=== PATIENT | female | born 1955 | race Two or more races ===

== ENCOUNTER 2017-01-16 18:57 | Inpatient (IN) | payer MEDICAID ==
[~2017-01-16] VITALS: Ht 157.5 cm; Wt 63.5 kg
[2017-01-16 19:30] VITALS: BP 124/54
[2017-01-16 20:25] LABS: MEAN CORPUSCULAR HEMOGLOBIN 33.2 PG (27.0-31.0); MEAN CORPUSCULAR HGB CONC 35.2 G/DL (32.0-36.0); MEAN CORPUSCULAR VOLUME 94 FL (80-99); MEAN PLATELET VOLUME 9.6 FL (6.5-10.1); PLATELET COUNT 150 K/UL (150-450); RED BLOOD COUNT 2.77 M/UL (4.20-5.40); RED CELL DISTRIBUTION WIDTH 12.6 % (11.6-14.8)
--- NOTE | 2017-01-16 20:34 | Emergency Room Report ---
History of Present Illness General Chief Complaint: Skin Rash/Abscess Source: Friend Present Illness HPI 61-year-old female presents emergency department complaining of progressive rash with blistering of the oral mucosa and vaginal mucosa progressive over 2 days. Patient states she has a history of rash with chemotherapy however her rash has been progressive and new onset of blistering lesions in the mouth and genital area. Patient reports mild itching initially and now painful lesions. Patient denies fevers or chills patient states that rash improved minimally with IV hydration at last doctor's visit however progressed the next day. Patient reports burning sensation in the throat with painful swallowing denies difficulty breathing or shortness of breath. Patient also reports history of gastritis which with chemotherapy he does become exacerbated. Patient denies chest pain, abdominal pain or vomiting reports intermittent nausea with treatment. Patient also reports dysuria denies frequency or hematuria. Last chemotherapy treatment was 1 week ago. She was also receiving injections to lower the immune system. Denies CP, Palpitations, LOC, AMS, dizziness, Changes in Vision, Sensation, paresthesias, or a sudden severe headache. Allergies: Coded Allergies: No Known Allergies (Unverified , 01/16/17) Patient History Past Medical History: see triage record Past Surgical History: none Pertinent Family History: none Last Menstrual Period: N/A Now: No Immunizations: UTD Reviewed Nursing Documentation: PMH: Agreed, PSxH: Agreed Nursing Documentation-PMH Hx Cancer: Yes - breast cancer Review of Systems All Other Systems: negative except mentioned in HPI Physical Exam Vital Signs Date Time Temp Pulse Resp B/P Pulse Ox O2 Delivery O2 Flow Rate FiO2 01/16/17 19:06 99.0 98 20 120/72 98 Room Air Sp02 EP Interpretation: reviewed, normal General Appearance: no apparent distress, alert, GCS 15, non-toxic Head: normocephalic, atraumatic Eyes: bilateral eye PERRL, bilateral eye normal inspection ENT: hearing grossly normal, normal pharynx, no angioedema, normal voice Neck: full range of motion, supple/symm/no masses Respiratory: lungs clear, normal breath sounds, no respiratory distress, no wheezing, speaking full sentences Cardiovascular #1: regular rate, rhythm, no edema Gastrointestinal: normal bowel sounds, non tender, soft, no guarding, no rebound Genitourinary: other - macerated vessicular lesions noted to the genital mucosa , no LAD Musculoskeletal: back normal, gait/station normal, normal range of motion, non- tender Neurologic: alert, oriented x3, responsive, motor strength/tone normal, sensory intact, speech normal Psychiatric: judgement/insight normal, memory normal, mood/affect normal Skin: normal color, warm/dry, well hydrated, rash - vessicular lesions to the posterior pharyanx and cheek mucosa, lesions also noted in the vaginal mucosa, there is erythematous non blanching rash with areas of excoriation to the soles of the feet, the bilateral hands, and the bilateral shoulders. Medical Decision Making PA Attestation Dr. Sandy is my supervising Physician whom patient management has been discussed with. Diagnostic Impression: Primary Impression: Adverse drug reaction Qualified Codes: T88.7XXA - Unspecified adverse effect of drug or medicament, initial encounter Additional Impressions: Neutropenia Qualified Codes: D70.2 - Other drug-induced agranulocytosis Elevated liver enzymes ER Course 61-year-old female presents emergency department complaining of progressive rash with blistering of the oral mucosa and vaginal mucosa progressive over 2 days. Patient states she has a history of rash with chemotherapy however her rash has been progressive and new onset of blistering lesions in the mouth and genital area. Patient reports mild itching initially and now painful lesions. Patient denies fevers or chills patient states that rash improved minimally with IV hydration at last doctor's visit however progressed the next day. Patient reports burning sensation in the throat with painful swallowing denies difficulty breathing or shortness of breath. Patient also reports history of gastritis which with chemotherapy he does become exacerbated. Patient denies chest pain, abdominal pain or vomiting reports intermittent nausea with treatment. Patient also reports dysuria denies frequency or hematuria. Last chemotherapy treatment was 1 week ago. She was also receiving injections to lower the immune system. Ddx considered but are not limited to cellulitis, allergic reaction, angio edema , abscess, SJS, TEN, Drug eruption Vital signs: are WNL, pt. is afebrile H&PE are most consistent with allergic involving mucous membranes suspicious for SJS. ORDERS: -CBC: critically decreased WBC's, otherwise pancytopenia noted -CMP: elevated LFT's AST 81, ALT 170 -PT/PTT: ED INTERVENTIONS: -1Liter NS - 25mg IV Benadryl DISPOSITION: at this time pt. will be admitted to Dr. Oliveros for Drug reaction. Dr. Oliveros agreed to admit the pt. and to continue pt. care management. Labs Test 01/16/17 19:55 White Blood Count 1.4 K/UL (4.8-10.8) Red Blood Count 2.77 M/UL (4.20-5.40) Hemoglobin 9.2 G/DL (12.0-16.0) Hematocrit 26.1 % (37.0-47.0) Mean Corpuscular Volume 94 FL (80-99) Mean Corpuscular Hemoglobin 33.2 PG (27.0-31.0) Mean Corpuscular Hemoglobin Concent 35.2 G/DL (32.0-36.0) Red Cell Distribution Width 12.6 % (11.6-14.8) Platelet Count 150 K/UL (150-450) Mean Platelet Volume 9.6 FL (6.5-10.1) Neutrophils (%) (Auto) % (45.0-75.0) Lymphocytes (%) (Auto) % (20.0-45.0) Monocytes (%) (Auto) % (1.0-10.0) Eosinophils (%) (Auto) % (0.0-3.0) Basophils (%) (Auto) % (0.0-2.0) Differential Total Cells Counted 100 Neutrophils % (Manual) 15 % (45-75) Lymphocytes % (Manual) 74 % (20-45) Monocytes % (Manual) 10 % (1-10) Eosinophils % (Manual) 0 % (0-3) Basophils % (Manual) 1 % (0-2) Band Neutrophils 0 % (0-8) Platelet Estimate Adequate Platelet Morphology Normal Hypochromasia 2+ Anisocytosis 1+ Prothrombin Time 9.4 SEC (9.30-11.50) Prothromb Time International Ratio 0.9 (0.9-1.1) Activated Partial Thromboplast Time 25 SEC (23-33) Sodium Level 141 mEQ/L (135-145) Potassium Level 3.9 mEQ/L (3.4-4.9) Chloride Level 102 mEQ/L (98-107) Carbon Dioxide Level 24 mEQ/L (20-30) Anion Gap 15 (5-15) Blood Urea Nitrogen 15 mg/dL (7-23) Creatinine 0.7 mg/dL (0.5-0.9) Estimat Glomerular Filtration Rate > 60 mL/min (>60) Glucose Level 112 mg/dL (74-106) Calcium Level 8.9 mg/dL (8.6-10.2) Total Bilirubin 0.3 mg/dL (0.0-1.2) Aspartate Amino Transf (AST/SGOT) 81 U/L (5-40) Alanine Aminotransferase (ALT/SGPT) 170 U/L (3-33) Alkaline Phosphatase 92 U/L (35-104) Total Protein 6.6 g/dL (6.6-8.7) Albumin 3.9 g/dL (3.5-5.2) Globulin 2.7 g/dL Albumin/Globulin Ratio 1.4 (1.0-2.7) Last Vital Signs Date Time Temp Pulse Resp B/P Pulse Ox O2 Delivery O2 Flow Rate FiO2 01/16/17 19:06 99.0 98 20 120/72 98 Room Air Disposition: ADMITTED INPATIENT Condition: Serious Referrals: NOT CHOSEN IPA/,REFERRING (PCP) Alexa Clemente Jan 16, 2017 20:34
[2017-01-16 20:37] LABS: INR 0.9 (0.9-1.1); PROTHROMBIN TIME 9.4 SEC (9.30-11.50)
[2017-01-16 20:39] LABS: ALANINE AMINOTRANSFERASE 170 U/L (3-33); ALBUMIN/GLOBULIN RATIO 1.4 (1.0-2.7); ANION GAP 15 (5-15); ASPARTATE AMINO TRANSFERASE 81 U/L (5-40); CALCIUM 8.9 mg/dL (8.6-10.2); CARBON DIOXIDE 24 mEQ/L (20-30); CHLORIDE 102 mEQ/L (98-107); CREATININE 0.7 mg/dL (0.5-0.9); GLOMERULAR FILTRATION RATE > 60 mL/min (>60); HEMOLYSIS 3; POTASSIUM 3.9 mEQ/L (3.4-4.9); SODIUM 141 mEQ/L (135-145); TOTAL PROTEIN 6.6 g/dL (6.6-8.7)
[2017-01-16 20:43] LABS: WHITE BLOOD COUNT 1.4 K/UL (4.8-10.8)
[2017-01-16] MEDS ORDERED: DiphenhydrAMINE 50mg/ml Inj IVP ONE (20:45)
[2017-01-16 21:00] VITALS: BP 108/58
[2017-01-16 21:33] LABS: ANISOCYTOSIS 1+; BAND NEUTROPHILS % (MANUAL) 0 % (0-8); BASOPHILS % (MANUAL) 1 % (0-2); EOSINOPHILS % (MANUAL) 0 % (0-3); HYPOCHROMASIA 2+; LYMPHOCYTES % (MANUAL) 74 % (20-45); NEUTROPHILS % (MANUAL) 15 % (45-75); PLATELET ESTIMATE ADEQUATE; PLATELET MORPHOLOGY NORMAL; TOTAL CELLS COUNTED 100
--- NOTE | 2017-01-16 21:39 | Consultation ---
Consult Note Consult Note Hematology Consult DOS: 01/16/17 RFC: Evaluation of breast cancer REQ MD: Arlin ID 61-year-old female pmhx of recently daignoised breast cancer and getting chemotherapy, presents emergency department complaining of progressive rash with blistering of the oral mucosa and vaginal mucosa progressive over 2 days. Patient states she has a history of rash with chemotherapy however her rash has been progressive and new onset of blistering lesions in the mouth and genital area. Patient reports mild itching initially and now painful lesions. Patient denies fevers or chills patient states that rash improved minimally with IV hydration at last doctor's visit however progressed the next day. Patient reports burning sensation in the throat with painful swallowing denies difficulty breathing or shortness of breath. Patient also reports history of gastritis which with chemotherapy he does become exacerbated. Patient denies chest pain, abdominal pain or vomiting reports intermittent nausea with treatment. Patient also reports dysuria denies frequency or hematuria. Last chemotherapy treatment was 1 week ago. She was also receiving neupogen, and heme/onc consulted. Allergies: No Known Allergies (Unverified , 01/16/17) Past Medical History: see triage record Past Surgical History: breast biopspy Family History: none Hx Cancer: Yes - breast cancer Meds: recently got herceptin and perjeta, tylenol ALL: nkda ROS: Constitutional: No fever, no chills, no night sweats, no fatigue Skin: No rashes, lumps, itchiness, dryness HEENT: No MOREAU, ear ache, visual changes, double vision, nosebleeds, sore throat, lumps, swollen glands Breasts: No lumps, pain, discharge Pulmonary: No cough, sputum, shortness of breath, coughing up blood, hemoptysis Cardiovascular: No chest pain, tightness, palpitations, syncope, claudication, orthopnea, PND GI: No nausea, vomiting, diarrhea, melena, hematochezia, change in appetite, abdominal pain : No dysuria, frequency, urgency, urinary incontinence, foamy urine Musculoskeletal: No joint swelling or muscle pain, trauma, back pain Neurologic: No dizziness, fainting, seizures, changes in smell or taste PE: General Appearance: A+O x3, NAD HEENT: normocephalic, atraumatic Neck: non-tender, normal alignment Respiratory/Chest: chest wall non-tender, lungs clear Cardiovascular/Chest: normal peripheral pulses, normal rate Abdomen: normal bowel sounds, non tender Extremities: normal, no cce, rash noted of upper extremities specifically Labs Test 01/16/17 19:55 White Blood Count 1.4 K/UL (4.8-10.8) Red Blood Count 2.77 M/UL (4.20-5.40) Hemoglobin 9.2 G/DL (12.0-16.0) Hematocrit 26.1 % (37.0-47.0) Mean Corpuscular Volume 94 FL (80-99) Mean Corpuscular Hemoglobin 33.2 PG (27.0-31.0) Mean Corpuscular Hemoglobin Concent 35.2 G/DL (32.0-36.0) Red Cell Distribution Width 12.6 % (11.6-14.8) Platelet Count 150 K/UL (150-450) Mean Platelet Volume 9.6 FL (6.5-10.1) Neutrophils (%) (Auto) % (45.0-75.0) Lymphocytes (%) (Auto) % (20.0-45.0) Monocytes (%) (Auto) % (1.0-10.0) Eosinophils (%) (Auto) % (0.0-3.0) Basophils (%) (Auto) % (0.0-2.0) Differential Total Cells Counted 100 Neutrophils % (Manual) 15 % (45-75) Lymphocytes % (Manual) 74 % (20-45) Monocytes % (Manual) 10 % (1-10) Eosinophils % (Manual) 0 % (0-3) Basophils % (Manual) 1 % (0-2) Band Neutrophils 0 % (0-8) Platelet Estimate Adequate Platelet Morphology Normal Hypochromasia 2+ Anisocytosis 1+ Prothrombin Time 9.4 SEC (9.30-11.50) Prothromb Time International Ratio 0.9 (0.9-1.1) Activated Partial Thromboplast Time 25 SEC (23-33) Sodium Level 141 mEQ/L (135-145) Potassium Level 3.9 mEQ/L (3.4-4.9) Chloride Level 102 mEQ/L (98-107) Carbon Dioxide Level 24 mEQ/L (20-30) Anion Gap 15 (5-15) Blood Urea Nitrogen 15 mg/dL (7-23) Creatinine 0.7 mg/dL (0.5-0.9) Estimat Glomerular Filtration Rate > 60 mL/min (>60) Glucose Level 112 mg/dL (74-106) Calcium Level 8.9 mg/dL (8.6-10.2) Total Bilirubin 0.3 mg/dL (0.0-1.2) Aspartate Amino Transf (AST/SGOT) 81 U/L (5-40) Alanine Aminotransferase (ALT/SGPT) 170 U/L (3-33) Alkaline Phosphatase 92 U/L (35-104) Total Protein 6.6 g/dL (6.6-8.7) Albumin 3.9 g/dL (3.5-5.2) Globulin 2.7 g/dL Albumin/Globulin Ratio 1.4 (1.0-2.7) Assessment and Recs: # Stage II breast cancer (per patient) has been on perjeta and herceptin with Dr. Mendoza in his clinic and now p/w rash likely related to medication ---> currently has not recieved chemo since 01/11/17, off of it, monitor rash for improvement in next few days # Leukopenia likely related to chemotherapy that was in addition to herpectin and perjeta ----> Neupogen daily SQ has been administered # Anemia secondary to chronic disease ---> Anemia w/u has been ordered # Anemia rule out Gi bleed # Mucositis and rash related to perjeta very likely (commonly associated with this mediation) # Dysphagia related to perjeta likely Lei Parisi Jan 16, 2017 21:39
--- NOTE | 2017-01-16 21:57 | Infectious Diseases Prog Note ---
Assessment/Plan Problems: (1) Neutropenic fever Assessment & Plan: will send blood and urine culture, and start vancomycin with cefepime empirically , continue neupogen until WBC improves as per hematology recommendations (2) Adverse drug reaction Assessment & Plan: suspect due to chemo, recommend hydration, antibiotics, antihistamines and dermatology consult (3) Breast cancer Assessment & Plan: s/p chemo x3 , HEM/ONC is following Subjective Allergies: Coded Allergies: No Known Allergies (Unverified , 01/16/17) Objective Vital Signs Last 24 Hour Vital Signs Date Time Temp Pulse Resp B/P Pulse Ox O2 Delivery O2 Flow Rate FiO2 01/16/17 21:00 88 22 108/58 97 Room Air 01/16/17 19:30 86 22 124/54 99 Room Air 01/16/17 19:06 99.0 98 20 120/72 98 Room Air Height (Feet): 5 Height (Inches): 2.00 Weight (Pounds): 140 Laboratory Tests Test 01/16/17 19:55 White Blood Count 1.4 K/UL (4.8-10.8) *L Red Blood Count 2.77 M/UL (4.20-5.40) L Hemoglobin 9.2 G/DL (12.0-16.0) L Hematocrit 26.1 % (37.0-47.0) L Mean Corpuscular Volume 94 FL (80-99) Mean Corpuscular Hemoglobin 33.2 PG (27.0-31.0) H Mean Corpuscular Hemoglobin Concent 35.2 G/DL (32.0-36.0) Red Cell Distribution Width 12.6 % (11.6-14.8) Platelet Count 150 K/UL (150-450) Mean Platelet Volume 9.6 FL (6.5-10.1) Neutrophils (%) (Auto) % (45.0-75.0) Lymphocytes (%) (Auto) % (20.0-45.0) Monocytes (%) (Auto) % (1.0-10.0) Eosinophils (%) (Auto) % (0.0-3.0) Basophils (%) (Auto) % (0.0-2.0) Differential Total Cells Counted 100 Neutrophils % (Manual) 15 % (45-75) L Lymphocytes % (Manual) 74 % (20-45) H Monocytes % (Manual) 10 % (1-10) Eosinophils % (Manual) 0 % (0-3) Basophils % (Manual) 1 % (0-2) Band Neutrophils 0 % (0-8) Platelet Estimate Adequate Platelet Morphology Normal Hypochromasia 2+ Anisocytosis 1+ Prothrombin Time 9.4 SEC (9.30-11.50) Prothromb Time International Ratio 0.9 (0.9-1.1) Activated Partial Thromboplast Time 25 SEC (23-33) Sodium Level 141 mEQ/L (135-145) Potassium Level 3.9 mEQ/L (3.4-4.9) Chloride Level 102 mEQ/L (98-107) Carbon Dioxide Level 24 mEQ/L (20-30) Anion Gap 15 (5-15) Blood Urea Nitrogen 15 mg/dL (7-23) Creatinine 0.7 mg/dL (0.5-0.9) Estimat Glomerular Filtration Rate > 60 mL/min (>60) Glucose Level 112 mg/dL (74-106) H Calcium Level 8.9 mg/dL (8.6-10.2) Total Bilirubin 0.3 mg/dL (0.0-1.2) Aspartate Amino Transf (AST/SGOT) 81 U/L (5-40) H Alanine Aminotransferase (ALT/SGPT) 170 U/L (3-33) H Alkaline Phosphatase 92 U/L (35-104) Total Protein 6.6 g/dL (6.6-8.7) Albumin 3.9 g/dL (3.5-5.2) Globulin 2.7 g/dL Albumin/Globulin Ratio 1.4 (1.0-2.7) Current Medications Medications (Trade) Dose Ordered Sig/Demario Route PRN Reason Start Time Stop Time Status Last Admin Dose Admin Tbo-Filgrastim (Granix) 300 mcg ONCE ONCE SQ 01/16/17 21:45 01/16/17 21:46 Payton Driscoll M.D. Jan 16, 2017 21:57
[2017-01-16 22:12] VITALS: BP 99/53
[2017-01-16] MEDS ORDERED: TBO-Filgrastim 300 mcg/0.5ml SQ ONE (22:15)
[2017-01-16] MEDS: Cefepime HCl 2 GM in D5W 110 ML IVPB SCH (22:56)
[2017-01-16 23:14] LABS: APPEARANCE,URINE CLEAR; KETONES,URINE NEGATIVE (NEGATIVE); LEUKOCYTE ESTERASE ,URINE 1+ (NEGATIVE); NITRITE,URINE NEGATIVE (NEGATIVE); PH,URINE 7 (4.5-8.0); PROTEIN,URINE NEGATIVE (NEGATIVE); UROBILINOGEN,URINE NORMAL MG/DL (0.0-1.0)
[2017-01-16 23:25] LABS: RBC,URINE 0-2 /HPF (0 - 2); SQUAMOUS EPITHELIAL CELL,UR FEW /LPF (NONE/OCC)
[2017-01-17] VITALS (7 sets, daily range): BP systolic 95–116; BP diastolic 51–74
[2017-01-17] MEDS ORDERED: Vancomycin 1gm inj IVPB ONE (00:04)
[2017-01-17] MEDS: Vancomycin 1 GM in D5W 275 ML IVPB SCH ×3 (00:10→23:47)
[2017-01-17 06:15] LABS: MEAN CORPUSCULAR HEMOGLOBIN 33.4 PG (27.0-31.0); MEAN CORPUSCULAR HGB CONC 35.3 G/DL (32.0-36.0); MEAN CORPUSCULAR VOLUME 95 FL (80-99); MEAN PLATELET VOLUME 9.4 FL (6.5-10.1); PLATELET COUNT 157 K/UL (150-450); RED BLOOD COUNT 2.57 M/UL (4.20-5.40)
[2017-01-17 06:24] LABS: WHITE BLOOD COUNT 1.4 K/UL (4.8-10.8)
[2017-01-17 06:32] LABS: ALANINE AMINOTRANSFERASE 136 U/L (3-33); ALBUMIN/GLOBULIN RATIO 1.4 (1.0-2.7); ANION GAP 16 (5-15); ASPARTATE AMINO TRANSFERASE 59 U/L (5-40); CALCIUM 8.3 mg/dL (8.6-10.2); CARBON DIOXIDE 21 mEQ/L (20-30); CHLORIDE 101 mEQ/L (98-107); CREATININE 0.6 mg/dL (0.5-0.9); GLOMERULAR FILTRATION RATE > 60 mL/min (>60); HEMOLYSIS 5; POTASSIUM 3.7 mEQ/L (3.4-4.9); SODIUM 138 mEQ/L (135-145); TOTAL PROTEIN 5.8 g/dL (6.6-8.7)
[2017-01-17 08:35] LABS: ANISOCYTOSIS 1+; BAND NEUTROPHILS % (MANUAL) 0 % (0-8); BASOPHILS % (MANUAL) 1 % (0-2); EOSINOPHILS % (MANUAL) 0 % (0-3); HYPOCHROMASIA 2+; LYMPHOCYTES % (MANUAL) 76 % (20-45); NEUTROPHILS % (MANUAL) 14 % (45-75); PLATELET ESTIMATE ADEQUATE; PLATELET MORPHOLOGY NORMAL; SPHEROCYTES 2+; TOTAL CELLS COUNTED 100
[2017-01-17] MEDS: Cefepime HCl 2 GM in D5W 110 ML IVPB SCH ×2 (11:25→17:00)
[2017-01-17] MEDS ORDERED: TBO-Filgrastim 300 mcg/0.5ml SQ ONE (15:00)
[2017-01-17] MEDS ORDERED: TBO-Filgrastim 480 mcg/0.8ml SQ NR (17:00)
[2017-01-17] MEDS: Lidocaine 2% Visc 15ml soln ORAL PRN (17:02)
--- NOTE | 2017-01-17 17:21 | Infectious Diseases Prog Note ---
Assessment/Plan Problems: (1) Neutropenic fever Assessment & Plan: await blood and urine culture, and continue vancomycin with cefepime empirically , continue filgrastim until WBC improves as per hematology recommendations (2) Adverse drug reaction Assessment & Plan: suspect due to chemo, recommend hydration, antibiotics, antihistamines and dermatology consult (3) Breast cancer Assessment & Plan: s/p chemo x3 , HEM/ONC is following Subjective Constitutional: Reports: no symptoms HEENT: Reports: no symptoms Respiratory: Reports: no symptoms Breasts: Reports: no symptoms Cardiovascular: Reports: no symptoms Gastrointestinal/Abdominal: Reports: other - dysphagia Genitourinary: Reports: no symptoms Neurologic: Reports: no symptoms Psychiatric: Reports: no symptoms Skin: Reports: other - bruises, rash Allergies: Coded Allergies: No Known Allergies (Unverified , 01/16/17) Objective Vital Signs Last 24 Hour Vital Signs Date Time Temp Pulse Resp B/P Pulse Ox O2 Delivery O2 Flow Rate FiO2 01/17/17 16:04 97.1 88 21 103/51 98 Room Air 01/17/17 12:30 97.8 81 20 95/57 99 Room Air 01/17/17 10:17 97.4 01/17/17 09:15 97.4 86 20 97/74 97 Room Air 01/17/17 08:14 97.4 86 20 97/74 97 Room Air 01/17/17 04:00 98.2 95 18 107/51 97 Room Air 01/17/17 00:00 98.8 86 18 110/59 99 Room Air 01/16/17 22:45 80 20 110/54 97 Room Air 01/16/17 22:12 99.0 81 21 99/53 99 Room Air 01/16/17 21:00 88 22 108/58 97 Room Air 01/16/17 19:30 86 22 124/54 99 Room Air 01/16/17 19:06 99.0 98 20 120/72 98 Room Air Height (Feet): 5 Height (Inches): 2.00 Weight (Pounds): 140 General Appearance: WD/WN, no acute distress HEENT: normocephalic, atraumatic, anicteric, mucous membranes moist Respiratory/Chest: chest wall non-tender, lungs clear, normal breath sounds, no respiratory distress, no accessory muscle use Cardiovascular: normal peripheral pulses, normal rate, regular rhythm, no gallop/murmur, no JVD Abdomen: normal bowel sounds, soft, non tender, no organomegaly, non distended , no mass Extremities: no cyanosis, no clubbing Skin: rash, other - redness Laboratory Tests Test 01/16/17 19:55 01/17/17 05:15 White Blood Count 1.4 K/UL (4.8-10.8) *L 1.4 K/UL (4.8-10.8) *L Red Blood Count 2.77 M/UL (4.20-5.40) L 2.57 M/UL (4.20-5.40) L Hemoglobin 9.2 G/DL (12.0-16.0) L 8.6 G/DL (12.0-16.0) L Hematocrit 26.1 % (37.0-47.0) L 24.3 % (37.0-47.0) L Mean Corpuscular Volume 94 FL (80-99) 95 FL (80-99) Mean Corpuscular Hemoglobin 33.2 PG (27.0-31.0) H 33.4 PG (27.0-31.0) H Mean Corpuscular Hemoglobin Concent 35.2 G/DL (32.0-36.0) 35.3 G/DL (32.0-36.0) Red Cell Distribution Width 12.6 % (11.6-14.8) 13.0 % (11.6-14.8) Platelet Count 150 K/UL (150-450) 157 K/UL (150-450) Mean Platelet Volume 9.6 FL (6.5-10.1) 9.4 FL (6.5-10.1) Neutrophils (%) (Auto) % (45.0-75.0) % (45.0-75.0) Lymphocytes (%) (Auto) % (20.0-45.0) % (20.0-45.0) Monocytes (%) (Auto) % (1.0-10.0) % (1.0-10.0) Eosinophils (%) (Auto) % (0.0-3.0) % (0.0-3.0) Basophils (%) (Auto) % (0.0-2.0) % (0.0-2.0) Differential Total Cells Counted 100 100 Neutrophils % (Manual) 15 % (45-75) L 14 % (45-75) L Lymphocytes % (Manual) 74 % (20-45) H 76 % (20-45) H Monocytes % (Manual) 10 % (1-10) 9 % (1-10) Eosinophils % (Manual) 0 % (0-3) 0 % (0-3) Basophils % (Manual) 1 % (0-2) 1 % (0-2) Band Neutrophils 0 % (0-8) 0 % (0-8) Platelet Estimate Adequate Adequate Platelet Morphology Normal Normal Hypochromasia 2+ 2+ Anisocytosis 1+ 1+ Prothrombin Time 9.4 SEC (9.30-11.50) Prothromb Time International Ratio 0.9 (0.9-1.1) Activated Partial Thromboplast Time 25 SEC (23-33) Urine Color Pale yellow Urine Appearance Clear Urine pH 7 (4.5-8.0) Urine Specific Leonard 1.010 (1.005-1.035) Urine Protein Negative (NEGATIVE) Urine Glucose (UA) Negative (NEGATIVE) Urine Ketones Negative (NEGATIVE) Urine Occult Blood Negative (NEGATIVE) Urine Nitrite Negative (NEGATIVE) Urine Bilirubin Negative (NEGATIVE) Urine Urobilinogen Normal MG/DL (0.0-1.0) Urine Leukocyte Esterase 1+ (NEGATIVE) H Urine RBC 0-2 /HPF (0 - 2) Urine WBC 2-4 /HPF (0 - 2) Urine Squamous Epithelial Cells Few /LPF (NONE/OCC) Urine Bacteria None /HPF (NONE) Sodium Level 141 mEQ/L (135-145) 138 mEQ/L (135-145) Potassium Level 3.9 mEQ/L (3.4-4.9) 3.7 mEQ/L (3.4-4.9) Chloride Level 102 mEQ/L (98-107) 101 mEQ/L (98-107) Carbon Dioxide Level 24 mEQ/L (20-30) 21 mEQ/L (20-30) Anion Gap 15 (5-15) 16 (5-15) H Blood Urea Nitrogen 15 mg/dL (7-23) 10 mg/dL (7-23) Creatinine 0.7 mg/dL (0.5-0.9) 0.6 mg/dL (0.5-0.9) Estimat Glomerular Filtration Rate > 60 mL/min (>60) > 60 mL/min (>60) Glucose Level 112 mg/dL (74-106) H 95 mg/dL (74-106) Calcium Level 8.9 mg/dL (8.6-10.2) 8.3 mg/dL (8.6-10.2) L Total Bilirubin 0.3 mg/dL (0.0-1.2) 0.5 mg/dL (0.0-1.2) Aspartate Amino Transf (AST/SGOT) 81 U/L (5-40) H 59 U/L (5-40) H Alanine Aminotransferase (ALT/SGPT) 170 U/L (3-33) H 136 U/L (3-33) H Alkaline Phosphatase 92 U/L (35-104) 84 U/L (35-104) Total Protein 6.6 g/dL (6.6-8.7) 5.8 g/dL (6.6-8.7) L Albumin 3.9 g/dL (3.5-5.2) 3.4 g/dL (3.5-5.2) L Globulin 2.7 g/dL 2.4 g/dL Albumin/Globulin Ratio 1.4 (1.0-2.7) 1.4 (1.0-2.7) Spherocytes 2+ Hepatitis A IgM Antibody Pending Hepatitis B Surface Antigen Pending Hepatitis B Core IgM Antibody Pending Hepatitis C Antibody Pending Herpes Simplex Virus I IgM Ab (IFA) Pending Herpes Simplex Virus II IgM Ab (IFA Pending Varicella-Zoster IgM Antibody Pending Current Medications Medications (Trade) Dose Ordered Sig/Demario Route PRN Reason Start Time Stop Time Status Last Admin Dose Admin Acetaminophen (Tylenol) 650 mg Q4H PRN ORAL Mild Pain/Temp > 100.5 01/16/17 23:30 02/15/17 23:29 01/17/17 09:18 Cefepime HCl/ Dextrose (Maxipime/D5W) 110 ml @ 220 mls/hr Q8H IVPB 01/17/17 17:00 01/24/17 16:59 01/17/17 17:00 Diphenhydramine HCl (Benadryl) 25 mg Q4H PRN ORAL Itching 01/16/17 23:30 02/15/17 23:29 Lidocaine HCl 15 ml 15 ml TIDPRN PRN ORAL oral pain 01/17/17 13:30 02/16/17 13:29 01/17/17 17:02 Ranitidine HCl 150 mg 150 mg DAILY ORAL 01/17/17 09:00 02/16/17 08:59 01/17/17 09:16 Sodium Chloride (0.45% NS 1000ml) 1,000 ml @ 80 mls/hr [id number] IV 01/17/17 00:00 02/16/17 00:00 01/17/17 13:48 Vancomycin HCl (Vanco rx to dose) 1 ea DAILY PRN MISC PER RX PROTOCOL 01/17/17 07:45 02/16/17 07:44 Vancomycin HCl/ Dextrose (Vancomycin/D5W) 275 ml @ 183.708 mls/hr Q12H IVPB 01/17/17 00:00 01/22/17 00:00 01/17/17 12:00 Payton Zaragoza M.D. Jan 17, 2017 17:21
[2017-01-17 18:30] LABS: PATH BLOOD SMEAR/OMC SENT TO PATHOLOGIST
[2017-01-17 20:36] LABS: URIC ACID 2.5 mg/dL (3.0-7.5)
--- NOTE | 2017-01-17 21:30 | Consultation ---
DATE OF CONSULTATION: INFECTIOUS DISEASE CONSULTATION CONSULTING PHYSICIAN: Payton Dupont M.D. REQUESTING PHYSICIAN: Shannan Oliveros M.D. REASON FOR CONSULTATION: Neutropenic fever with skin bruises, recommendation for antibiotics therapy. HISTORY OF PRESENT ILLNESS: The patient is a 61-year-old female with past medical history of breast cancer, has been receiving chemotherapy at outside facility and had three courses of chemo, last one was about four days ago, presented to the hospital with progressive skin bruises and blisters. The patient completed her last course about four days ago and she developed skin redness with bruises. She had mild blisters on top of the bruises and it has been itchy, never had this before and it only showed up after her last course of chemotherapy. The patient denied any recent sick contact or travel. Denied any recent change in her medications and felt better after she received hydration and pain medicine in the emergency room. The patient was found to be neutropenic in the ER with low-grade temperature of 99 and white count of 1.4, so I was consulted by the primary provider for antibiotics recommendation and further management. REVIEW OF SYSTEMS: A 14-point of system reviewed, all negative apart from the one I mentioned above in my History and Physical. PAST MEDICAL HISTORY: Significant for breast cancer, status post chemotherapy. PAST SURGICAL HISTORY: Negative. FAMILY HISTORY: Not contributory. SOCIAL HISTORY: The patient lives at home with family. Denied using any drugs, tobacco, or alcohol. ALLERGIES: She has no known drug allergy. MEDICATIONS: The patient received cefepime and filgrastim in the emergency room. For the rest of her medications, please refer to MAR. PHYSICAL EXAMINATION: VITAL SIGNS: Temperature 99, pulse 81, respirations 21, blood pressure 99/53, and saturation 99% on room air. GENERAL: Middle-aged female, Bangladeshi speaking, up in bed, awake, alert, in no distress. HEENT: Normocephalic and atraumatic. Pupils reactive to light equally. Pale sclerae. Dry oral mucosa. No thrush or exudate. Mildly enlarged tonsils. NECK: Supple. No lymphadenopathy. CARDIOVASCULAR: Regular rate and rhythm. No murmur or gallop. LUNGS: Clear bilaterally. No wheezing or rhonchi. ABDOMEN: Soft, nontender, and nondistended. Positive bowel sounds. No hepatosplenomegaly. EXTREMITIES: No edema or cyanosis. She had multiple skin bruises and small blisters on the skin and erythema at the bruises site, warm to touch. LABORATORY DATA: Labs showed white count of 1.4, hemoglobin of 9.2, and platelet count of 150,000. BUN of 15 and creatinine of 0.7. AST of 81, ALT of 117. Urinalysis negative for infection. ASSESSMENT AND RECOMMENDATION: 1. Neutropenic fever, suspect due to chemotherapy with bone marrow suppression. Recommend to continue filgrastim injection until her WBC improves. Start the patient empirically on vancomycin and cefepime, and send blood culture and urine culture and monitor WBC. 2. Skin bruises with redness, erythema, suspect reaction due to chemotherapy and pancytopenia. Recommend hydration, antibiotics, antihistamine if needed, and Dermatology consultation if no improvement with antibiotics therapy. 3. Breast cancer, status post chemotherapy x3. Hematology/Oncology was consulted. Further recommendation as per them. Thank you for the consult. Payton Zaragoza M.D. DR: ROSA JOB#: [id number] CC:
[2017-01-18] VITALS: BP 110/52
--- NOTE | 2017-01-18 01:00 | History and Physical Report ---
DATE OF ADMISSION: 01/16/2017 HISTORY OF PRESENT ILLNESS: The patient has been admitted for possible drug reaction. The patient has been given chemotherapy for breast cancer. The patient does not speak that much Albanian, has limited Albanian knowledge. The patient denies any significant itching, but did develop rash throughout the body for the past 3-4 days. to rule out drug reaction. Otherwise, no nausea, vomiting, or diarrhea. No fever or chills. No shortness of breath or cough. Denies fever or chills. PAST MEDICAL HISTORY: Breast cancer, getting chemotherapy. MEDICATIONS: ALLERGIES: No known allergies. SOCIAL HISTORY: Denies history of smoking, alcohol, or illicit drugs. FAMILY HISTORY: Noncontributory. REVIEW OF SYSTEMS: HEENT: Denies headaches. Respiratory: Denies shortness of breath. Denies cough. Cardiovascular: Denies chest pain or orthopnea. Gastrointestinal: Denies nausea, vomiting, or diarrhea. Extremities: Denies pain in the lower extremities. Central Nervous System: No change in vision or speech pattern. . PHYSICAL EXAMINATION: VITAL SIGNS: Temperature 98.8 degrees, pulse 86, and blood pressure 110/59. HEENT: PERRLA. NECK: Supple. No lymphadenopathy. CHEST: Clear to auscultation. GASTROINTESTINAL: Soft, nontender, and nondistended. No organomegaly. EXTREMITIES: No edema. Moves all four extremities. CENTRAL NERVOUS SYSTEM: Sensation intact to light touch. Cranial nerves II through XII are intact. The patient has rash throughout the body and it looks like scratch amelia as well. Alert and oriented x3. Moves all four extremities. LABORATORY AND DIAGNOSTIC DATA: WBC 7.4, hemoglobin 9.2, and platelets 150,000. Sodium 141, potassium 3.9, BUN 15, creatinine 0.7, and glucose of 112. AST of 81, and ALT of 113. ASSESSMENT AND PLAN: 1. Neutropenic most likely due to the chemotherapy. 2. Rule out drug reaction. 3. Rash. PLAN: I have asked Dr. Zaragoza, Dr. Harrison, and Dr. Parisi to see this patient for the above-mentioned diagnoses and treatment. Ali Erika Oliveros DR: Imtiaz JOB#: [id number] CC:
[2017-01-18] MEDS: Cefepime HCl 2 GM in D5W 110 ML IVPB SCH ×3 (01:17→17:07)
[2017-01-18 04:00] VITALS: BP 116/55
[2017-01-18 07:52] VITALS: BP 114/58
[2017-01-18] MEDS: Vitamin A&D Oint 2oz Tube TOPIC SCH ×2 (10:03→22:46)
[2017-01-18 10:48] LABS: OTHERS PATHOLOGIST COMMENT
--- NOTE | 2017-01-18 11:50 | General Progress Note ---
Assessment/Plan Problem List: (1) Elevated liver enzymes ICD Codes: R74.8 - Abnormal levels of other serum enzymes SNOMED: 837348330, [id number] (2) Neutropenia ICD Codes: D70.9 - Neutropenia, unspecified SNOMED: 987643564 Qualifiers: Qualified Codes: D70.2 - Other drug-induced agranulocytosis (3) Adverse drug reaction ICD Codes: T88.7XXA - Unspecified adverse effect of drug or medicament, initial encounter SNOMED: 24201174 Qualifiers: Qualified Codes: T88.7XXA - Unspecified adverse effect of drug or medicament , initial encounter Status: progressing Assessment/Plan rash drug reaction afebrile neutorpenia getting chemo heme/onc on the case for neutropenia treatment Subjective ROS Limited/Unobtainable: Yes Allergies: Coded Allergies: No Known Allergies (Unverified , 01/16/17) Subjective rash Objective Last 24 Hour Vital Signs Date Time Temp Pulse Resp B/P Pulse Ox O2 Delivery O2 Flow Rate FiO2 01/18/17 08:58 98.1 01/18/17 07:52 98.1 99 20 114/58 100 Room Air 01/18/17 04:00 98.1 90 20 116/55 97 Room Air 01/18/17 00:00 98.4 95 18 110/52 96 Room Air 01/17/17 20:00 98.6 98 18 116/55 98 Room Air 01/17/17 16:04 97.1 88 21 103/51 98 Room Air 01/17/17 12:30 97.8 81 20 95/57 99 Room Air Intake and Output 01/17/17 01/18/17 19:00 07:00 Intake Total 2325 ml 880 ml Output Total 600 ml Balance 2325 ml 280 ml Intake Oral 1150 ml 640 ml IV Total 1175 ml 240 ml Output Urine Total 600 ml # Voids 2 1 Laboratory Tests 01/17/17 19:45: Haptoglobin 182, Uric Acid 2.5L, Iron Level 22L, Total Iron Binding Capacity 211L, Percent Iron Saturation 10L, Unsaturated Iron Binding 189, Ferritin 291H, CA 15-3 Antigen [Pending], Vitamin B12 Level 1209H 01/18/17 11:05: Vancomycin Level Trough 13.6H Height (Feet): 5 Height (Inches): 2.00 Weight (Pounds): 140 Neck: supple Cardiovascular: normal rate Respiratory/Chest: lungs clear Abdomen: soft Shannan Oliveros MD Jan 18, 2017 11:50
[2017-01-18 12:00] VITALS: BP 106/63
[2017-01-18] MEDS: Vancomycin 1 GM in D5W 275 ML IVPB SCH (12:12)
[2017-01-18] MEDS: Lidocaine 2% Visc 15ml soln ORAL PRN (13:37)
--- NOTE | 2017-01-18 14:10 | Infectious Diseases Prog Note ---
Assessment/Plan Problems: (1) Neutropenic fever Assessment & Plan: await blood and urine culture, and continue vancomycin with cefepime empirically , continue filgrastim until WBC improves as per hematology recommendations (2) Adverse drug reaction Assessment & Plan: suspect due to chemo, recommend hydration, antibiotics, antihistamines and dermatology consult (3) Breast cancer Assessment & Plan: s/p chemo x3 , HEM/ONC is following (4) Acid reflux Assessment & Plan: start ppi Subjective Constitutional: Reports: fatigue HEENT: Reports: no symptoms Respiratory: Reports: no symptoms Breasts: Reports: no symptoms Cardiovascular: Reports: no symptoms Gastrointestinal/Abdominal: Reports: other - stomach burning Genitourinary: Reports: no symptoms Neurologic: Reports: no symptoms Psychiatric: Reports: depression Skin: Reports: other - dermatitis on her hands and legs with blisters, ulcer Endocrine: Reports: no symptoms Hematologic: Reports: other - bruises Allergies: Coded Allergies: No Known Allergies (Unverified , 01/16/17) Objective Vital Signs Last 24 Hour Vital Signs Date Time Temp Pulse Resp B/P Pulse Ox O2 Delivery O2 Flow Rate FiO2 01/18/17 12:00 98.1 87 20 106/63 99 Room Air 01/18/17 08:58 98.1 01/18/17 07:52 98.1 99 20 114/58 100 Room Air 01/18/17 04:00 98.1 90 20 116/55 97 Room Air 01/18/17 00:00 98.4 95 18 110/52 96 Room Air 01/17/17 20:00 98.6 98 18 116/55 98 Room Air 01/17/17 16:04 97.1 88 21 103/51 98 Room Air Height (Feet): 5 Height (Inches): 2.00 Weight (Pounds): 140 General Appearance: WD/WN, no acute distress HEENT: normocephalic, atraumatic, anicteric, mucous membranes moist Respiratory/Chest: chest wall non-tender, lungs clear, normal breath sounds, no respiratory distress, no accessory muscle use Cardiovascular: normal peripheral pulses, normal rate, regular rhythm, no gallop/murmur, no JVD Abdomen: normal bowel sounds, soft, non tender, no organomegaly, non distended , no mass, no scars Extremities: no cyanosis, no clubbing Skin: rash, ulcers, other - dermatitis on her hands Microbiology Date/Time Source Procedure Growth Status 01/17/17 06:03 Urine,Clean Catch Urine Culture - Preliminary NO GROWTH Resulted 01/16/17 22:05 Arm Left Blood Culture - Preliminary NO GROWTH AFTER 24 HOURS Resulted 01/16/17 22:00 Arm Right Blood Culture - Preliminary NO GROWTH AFTER 24 HOURS Resulted Laboratory Tests Test 01/17/17 19:45 01/18/17 11:05 Haptoglobin 182 mg/dL (30-200) Uric Acid 2.5 mg/dL (3.0-7.5) L Iron Level 22 ug/dL (37-145) L Total Iron Binding Capacity 211 ug/dL (250-400) L Percent Iron Saturation 10 % (15-50) L Unsaturated Iron Binding 189 ug/dL (112-346) Ferritin 291 ng/mL (13-150) H CA 15-3 Antigen Pending Vitamin B12 Level 1209 pg/mL (211-946) H Vancomycin Level Trough 13.6 ug/mL (5.0-12.0) H Current Medications Medications (Trade) Dose Ordered Sig/Demario Route PRN Reason Start Time Stop Time Status Last Admin Dose Admin Acetaminophen (Tylenol) 650 mg Q4H PRN ORAL Mild Pain/Temp > 100.5 01/16/17 23:30 02/15/17 23:29 01/18/17 07:59 Cefepime HCl/ Dextrose (Maxipime/D5W) 110 ml @ 220 mls/hr Q8H IVPB 01/17/17 17:00 01/24/17 16:59 01/18/17 08:35 Diphenhydramine HCl (Benadryl) 25 mg Q4H PRN ORAL Itching 01/16/17 23:30 02/15/17 23:29 Lidocaine HCl 15 ml 15 ml TIDPRN PRN ORAL oral pain 01/17/17 13:30 02/16/17 13:29 01/18/17 13:37 Ranitidine HCl 150 mg 150 mg DAILY ORAL 01/17/17 09:00 02/16/17 08:59 01/18/17 08:34 Sodium Chloride (0.45% NS 1000ml) 1,000 ml @ 80 mls/hr [id number] IV 01/17/17 00:00 02/16/17 00:00 01/18/17 01:17 Vancomycin HCl (Vanco rx to dose) 1 ea DAILY PRN MISC PER RX PROTOCOL 01/17/17 07:45 02/16/17 07:44 Vancomycin HCl/ Dextrose (Vancomycin/D5W) 275 ml @ 183.708 mls/hr Q12H IVPB 01/17/17 00:00 01/22/17 00:00 01/18/17 12:12 Vitamin A/Vitamin D (A & D Oint) 1 applic Q12HR TOPIC 01/18/17 09:00 02/17/17 08:59 01/18/17 10:03 Payton Zaragoza M.D. Jan 18, 2017 14:10
[2017-01-18] MEDS ORDERED: Lidocaine 2% Visc 15ml soln ORAL SCH (14:45)
[2017-01-18 14:54] LABS: MEAN CORPUSCULAR HEMOGLOBIN 33.1 PG (27.0-31.0); MEAN CORPUSCULAR HGB CONC 34.4 G/DL (32.0-36.0); MEAN CORPUSCULAR VOLUME 96 FL (80-99); MEAN PLATELET VOLUME 6.8 FL (6.5-10.1); PLATELET COUNT 207 K/UL (150-450); RED BLOOD COUNT 2.93 M/UL (4.20-5.40); RED CELL DISTRIBUTION WIDTH 12.7 % (11.6-14.8); WHITE BLOOD COUNT 2.8 K/UL (4.8-10.8)
[2017-01-18] MEDS ORDERED: 1/2 NS 1000ml IV ONE (15:26)
[2017-01-18] MEDS ORDERED: D5 1/2NS 1000ml IV ONE (15:26)
[2017-01-18] MEDS ORDERED: Tubing IV Secondary IV ONE (15:26)
[2017-01-18] MEDS: Dyna-Hex 2% Top Sol 8oz TOPIC SCH (15:57)
[2017-01-18 16:06] VITALS: BP 115/55
--- NOTE | 2017-01-18 16:45 | General Progress Note ---
Assessment/Plan Assessment/Plan late entry 01/17/17 # Stage II breast cancer (per patient) has been on perjeta and herceptin with Dr. Mendoza in his clinic and now p/w rash likely related to medication ---> currently has not recieved chemo since 01/11/17, off of it, monitor rash for improvement in next few days # Leukopenia likely related to chemotherapy that was in addition to herpectin and perjeta ----> Neupogen daily SQ has been administered # Anemia secondary to chronic disease ---> Anemia w/u has been ordered # Anemia rule out Gi bleed # Mucositis and rash related to perjeta very likely (commonly associated with this medication) # Dysphagia related to perjeta likely Subjective Date patient seen: Jan 17, 2017 Constitutional: Reports: no symptoms HEENT: Reports: no symptoms Cardiovascular: Reports: no symptoms Respiratory: Reports: no symptoms Gastrointestinal/Abdominal: Reports: no symptoms Genitourinary: Reports: no symptoms Neurologic/Psychiatric: Reports: no symptoms Endocrine: Reports: no symptoms Hematologic/Lymphatic: Reports: no symptoms Allergies: Coded Allergies: No Known Allergies (Unverified , 01/16/17) Subjective afebrile, no events ON Objective Last 24 Hour Vital Signs Date Time Temp Pulse Resp B/P Pulse Ox O2 Delivery O2 Flow Rate FiO2 01/18/17 16:06 98.4 85 20 115/55 98 Room Air 01/18/17 12:00 98.1 87 20 106/63 99 Room Air 01/18/17 08:58 98.1 01/18/17 07:52 98.1 99 20 114/58 100 Room Air 01/18/17 04:00 98.1 90 20 116/55 97 Room Air 01/18/17 00:00 98.4 95 18 110/52 96 Room Air 01/17/17 20:00 98.6 98 18 116/55 98 Room Air Intake and Output 01/17/17 01/18/17 19:00 07:00 Intake Total 2325 ml 880 ml Output Total 600 ml Balance 2325 ml 280 ml Intake Oral 1150 ml 640 ml IV Total 1175 ml 240 ml Output Urine Total 600 ml # Voids 2 1 Laboratory Tests 01/17/17 19:45: Haptoglobin 182, Uric Acid 2.5L, Iron Level 22L, Total Iron Binding Capacity 211L, Percent Iron Saturation 10L, Unsaturated Iron Binding 189, Ferritin 291H, CA 15-3 Antigen [Pending], Vitamin B12 Level 1209H 01/18/17 11:05: Vancomycin Level Trough 13.6H 01/18/17 14:40: White Blood Count 2.8#L, Red Blood Count 2.93L, Hemoglobin 9.7L, Hematocrit 28.1L, Mean Corpuscular Volume 96, Mean Corpuscular Hemoglobin 33.1H, Mean Corpuscular Hemoglobin Concent 34.4, Red Cell Distribution Width 12.7, Platelet Count 207, Mean Platelet Volume 6.8, Neutrophils (%) (Auto) , Lymphocytes (%) ( Auto) , Monocytes (%) (Auto) , Eosinophils (%) (Auto) , Basophils (%) (Auto) , Neutrophils % (Manual) [Pending], Lymphocytes % (Manual) [Pending], Platelet Estimate [Pending], Platelet Morphology [Pending] Height (Feet): 5 Height (Inches): 2.00 Weight (Pounds): 140 General Appearance: no apparent distress EENT: normal ENT inspection Neck: supple Cardiovascular: regular rhythm Respiratory/Chest: chest wall non-tender Abdomen: normal bowel sounds Extremities: non-tender Edema: no edema noted Leg (L), no edema noted Leg (R), no edema noted Pedal (L) , no edema noted Pedal (R) 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
--- NOTE | 2017-01-18 16:47 | General Progress Note ---
Assessment/Plan Assessment/Plan late entry 01/17/17 # Stage II breast cancer (per patient) has been on perjeta and herceptin with Dr. Mendoza in his clinic and now p/w rash likely related to medication ---> currently has not received chemo since 01/11/17, off of it, monitor rash for improvement in next few days, then continue chemo as outpatient # Leukopenia likely related to chemotherapy that was in addition to herpectin and perjeta ----> Neupogen daily SQ has been administered # Anemia secondary to chronic disease ---> Anemia w/u has been ordered # Anemia rule out Gi bleed # Mucositis and rash related to perjeta very likely (commonly associated with this medication) # Dysphagia related to perjeta likely Subjective Constitutional: Reports: no symptoms HEENT: Reports: no symptoms Cardiovascular: Reports: no symptoms Respiratory: Reports: no symptoms Gastrointestinal/Abdominal: Reports: no symptoms Genitourinary: Reports: no symptoms Neurologic/Psychiatric: Reports: no symptoms Endocrine: Reports: no symptoms Allergies: Coded Allergies: No Known Allergies (Unverified , 01/16/17) Subjective pt is feeling better today, less weak, is eating Objective Last 24 Hour Vital Signs Date Time Temp Pulse Resp B/P Pulse Ox O2 Delivery O2 Flow Rate FiO2 01/18/17 16:06 98.4 85 20 115/55 98 Room Air 01/18/17 12:00 98.1 87 20 106/63 99 Room Air 01/18/17 08:58 98.1 01/18/17 07:52 98.1 99 20 114/58 100 Room Air 01/18/17 04:00 98.1 90 20 116/55 97 Room Air 01/18/17 00:00 98.4 95 18 110/52 96 Room Air 01/17/17 20:00 98.6 98 18 116/55 98 Room Air Intake and Output 01/17/17 01/18/17 19:00 07:00 Intake Total 2325 ml 880 ml Output Total 600 ml Balance 2325 ml 280 ml Intake Oral 1150 ml 640 ml IV Total 1175 ml 240 ml Output Urine Total 600 ml # Voids 2 1 Laboratory Tests 01/17/17 19:45: Haptoglobin 182, Uric Acid 2.5L, Iron Level 22L, Total Iron Binding Capacity 211L, Percent Iron Saturation 10L, Unsaturated Iron Binding 189, Ferritin 291H, CA 15-3 Antigen [Pending], Vitamin B12 Level 1209H 01/18/17 11:05: Vancomycin Level Trough 13.6H 01/18/17 14:40: White Blood Count 2.8#L, Red Blood Count 2.93L, Hemoglobin 9.7L, Hematocrit 28.1L, Mean Corpuscular Volume 96, Mean Corpuscular Hemoglobin 33.1H, Mean Corpuscular Hemoglobin Concent 34.4, Red Cell Distribution Width 12.7, Platelet Count 207, Mean Platelet Volume 6.8, Neutrophils (%) (Auto) , Lymphocytes (%) ( Auto) , Monocytes (%) (Auto) , Eosinophils (%) (Auto) , Basophils (%) (Auto) , Neutrophils % (Manual) [Pending], Lymphocytes % (Manual) [Pending], Platelet Estimate [Pending], Platelet Morphology [Pending] Height (Feet): 5 Height (Inches): 2.00 Weight (Pounds): 140 General Appearance: no apparent distress EENT: normal ENT inspection Neck: normal alignment Cardiovascular: normal rate Respiratory/Chest: lungs clear Abdomen: normal bowel sounds Edema: no edema noted Leg (L), no edema noted Leg (R), no edema noted Pedal (L) , no edema noted Pedal (R) 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
[2017-01-18] MEDS: Lidocaine 2% Visc 15ml soln ORAL SCH (17:29)
[2017-01-18 18:00] LABS: BAND NEUTROPHILS % (MANUAL) 3 % (0-8); BASOPHILS % (MANUAL) 1 % (0-2); LYMPHOCYTES % (MANUAL) 52 % (20-45); METAMYELOCYTES % 0 % (0-0); NEUTROPHILS % (MANUAL) 16 % (45-75); NUCLEATED RED BLOOD CELLS 6 /100 WBC; TOTAL CELLS COUNTED 100
[2017-01-18 18:01] LABS: EOSINOPHILS % (MANUAL) 0 % (0-3); MACROCYTES 1+; PLATELET ESTIMATE ADEQUATE; POLYCHROMASIA 1+
[2017-01-18 18:02] LABS: PLATELET MORPHOLOGY NORMAL
[2017-01-18 20:00] VITALS: BP 111/60
[2017-01-18] MEDS ORDERED: TBO-Filgrastim 300 mcg/0.5ml SQ NR (21:00)
[2017-01-19] VITALS: BP 109/54
[2017-01-19] MEDS: Cefepime HCl 2 GM in D5W 110 ML IVPB SCH ×2 (01:08→08:56)
[2017-01-19] MEDS: Vancomycin 1 GM in D5W 275 ML IVPB SCH ×2 (01:09→12:41)
[2017-01-19 04:00] VITALS: BP 103/53
[2017-01-19 08:00] VITALS: BP 107/62
[2017-01-19] MEDS: Lidocaine 2% Visc 15ml soln ORAL SCH ×3 (08:56→17:40)
[2017-01-19] MEDS: Dyna-Hex 2% Top Sol 8oz TOPIC SCH (08:56)
[2017-01-19] MEDS: Vitamin A&D Oint 2oz Tube TOPIC SCH ×2 (09:00→21:29)
[2017-01-19 10:17] LABS: VARICELLA ZOSTER IGM ANTIBODY <0.91 index (0.00-0.90)
[2017-01-19] MEDS ORDERED: Tubing IV Secondary IV ONE (10:23)
[2017-01-19] MEDS ORDERED: 1/2 NS 1000ml IV ONE (10:23)
[2017-01-19] MEDS ORDERED: DiphenhydrAMINE 50mg/ml Inj IVP PRN (11:00)
[2017-01-19 12:00] VITALS: BP 107/47
[2017-01-19] MEDS ORDERED: Hydrocortisone 2.5% Oint 30gm TOPIC PRN ×2 (12:45→14:30)
--- NOTE | 2017-01-19 14:00 | Infectious Diseases Prog Note ---
Assessment/Plan Problems: (1) Neutropenic fever Assessment & Plan: improving , with negative blood and urine culture, will D/ C vancomycin and cefepime if her WBC today is OK .further recommendations as per hematology (2) Adverse drug reaction Assessment & Plan: suspect due to chemo, mainly perjeta , started on doxycycline by oncologist, recommend wound care consult , viral serology is negative (3) Breast cancer Assessment & Plan: s/p chemo x3 , HEM/ONC is following (4) Acid reflux Assessment & Plan: continue ranitidine . Subjective Constitutional: Reports: no symptoms HEENT: Reports: no symptoms Respiratory: Reports: no symptoms Cardiovascular: Reports: no symptoms Gastrointestinal/Abdominal: Reports: no symptoms Genitourinary: Reports: no symptoms Neurologic: Reports: no symptoms Psychiatric: Reports: no symptoms Skin: Reports: other - dermatitis, with blisters , ulcer Endocrine: Reports: no symptoms Hematologic: Reports: bleeding Allergies: Coded Allergies: No Known Allergies (Unverified , 01/16/17) Objective Vital Signs Last 24 Hour Vital Signs Date Time Temp Pulse Resp B/P Pulse Ox O2 Delivery O2 Flow Rate FiO2 01/19/17 12:00 97.3 90 20 107/47 97 Room Air 01/19/17 08:00 98.1 95 20 107/62 96 Room Air 01/19/17 04:00 98.9 88 18 103/53 97 Room Air 01/19/17 00:00 98.7 95 18 109/54 98 Room Air 01/18/17 20:00 98.7 94 18 111/60 98 Room Air 01/18/17 16:06 98.4 85 20 115/55 98 Room Air Height (Feet): 5 Height (Inches): 2.00 Weight (Pounds): 140 General Appearance: WD/WN, no acute distress HEENT: normocephalic, atraumatic, anicteric, mucous membranes moist Respiratory/Chest: chest wall non-tender, lungs clear, normal breath sounds, no respiratory distress, no accessory muscle use Cardiovascular: normal peripheral pulses, normal rate, regular rhythm, no gallop/murmur Abdomen: normal bowel sounds, soft, non tender, no organomegaly, non distended , no mass, no scars Extremities: no cyanosis, no clubbing, other - erythema on her hands and foots with skin blisters Skin: no lesions, ulcers, other - dermatitis with redness Musculoskeletal: normal muscle bulk Microbiology Date/Time Source Procedure Growth Status 01/17/17 06:03 Urine,Clean Catch Urine Culture - Preliminary NO GROWTH AFTER 24 HOURS Resulted 01/16/17 22:05 Arm Left Blood Culture - Preliminary NO GROWTH AFTER 48 HOURS Resulted 01/16/17 22:00 Arm Right Blood Culture - Preliminary NO GROWTH AFTER 48 HOURS Resulted Laboratory Tests Test 01/18/17 14:40 White Blood Count 2.8 K/UL (4.8-10.8) #L Red Blood Count 2.93 M/UL (4.20-5.40) L Hemoglobin 9.7 G/DL (12.0-16.0) L Hematocrit 28.1 % (37.0-47.0) L Mean Corpuscular Volume 96 FL (80-99) Mean Corpuscular Hemoglobin 33.1 PG (27.0-31.0) H Mean Corpuscular Hemoglobin Concent 34.4 G/DL (32.0-36.0) Red Cell Distribution Width 12.7 % (11.6-14.8) Platelet Count 207 K/UL (150-450) Mean Platelet Volume 6.8 FL (6.5-10.1) Neutrophils (%) (Auto) % (45.0-75.0) Lymphocytes (%) (Auto) % (20.0-45.0) Monocytes (%) (Auto) % (1.0-10.0) Eosinophils (%) (Auto) % (0.0-3.0) Basophils (%) (Auto) % (0.0-2.0) Differential Total Cells Counted 100 Neutrophils % (Manual) 16 % (45-75) L Lymphocytes % (Manual) 52 % (20-45) H Monocytes % (Manual) 28 % (1-10) H Eosinophils % (Manual) 0 % (0-3) Basophils % (Manual) 1 % (0-2) Metamyelocytes % 0 % (0-0) Band Neutrophils 3 % (0-8) Nucleated Red Blood Cells 6 /100 WBC Platelet Estimate Adequate Platelet Morphology Normal Polychromasia 1+ Macrocytosis 1+ Current Medications Medications (Trade) Dose Ordered Sig/Demario Route PRN Reason Start Time Stop Time Status Last Admin Dose Admin Acetaminophen 650 mg 650 mg Q4H PRN ORAL Mild Pain/Temp > 100.5 6/20/17 23:30 02/15/17 23:29 01/18/17 07:59 Cefepime HCl/ Dextrose (Maxipime/D5W) 110 ml @ 220 mls/hr Q8H IVPB 01/17/17 17:00 01/24/17 16:59 01/19/17 08:56 Chlorhexidine Gluconate (Liliana-Hex 2%) 1 applic DAILY TOPIC 01/18/17 15:15 02/17/17 15:14 01/19/17 08:56 Diphenhydramine HCl (Benadryl) 25 mg Q4H PRN IVP Itching 01/19/17 11:00 02/18/17 10:59 Doxycycline Monohydrate (Vibramycin) 100 mg EVERY 12 HOURS ORAL 01/19/17 21:00 01/26/17 20:59 UNV Hydrocortisone (Hydrocortisone) 1 applic EVERY 6 HOURS PRN TOPIC Itching 01/19/17 12:45 02/18/17 12:44 UNV Lidocaine HCl (Xylocaine Viscous) 15 ml THREE TIMES A DAY ORAL 01/18/17 18:00 02/17/17 17:59 01/19/17 12:41 Ranitidine HCl (Zantac) 150 mg BID ORAL 01/18/17 18:00 02/17/17 17:59 01/19/17 08:55 Sodium Chloride (0.45% NS 1000ml) 1,000 ml @ 80 mls/hr [id number] IV 01/17/17 00:00 02/16/17 00:00 01/19/17 08:56 Vancomycin HCl 1 ea 1 ea DAILY PRN MISC PER RX PROTOCOL 01/17/17 07:45 02/16/17 07:44 Vancomycin HCl/ Dextrose (Vancomycin/D5W) 275 ml @ 183.708 mls/hr Q12H IVPB 01/17/17 00:00 01/22/17 00:00 01/19/17 12:41 Vitamin A/Vitamin D (A & D Oint) 1 applic Q12HR TOPIC 01/18/17 09:00 02/17/17 08:59 01/18/17 22:46 Payton Zaragoza M.D. Jan 19, 2017 13:59
[2017-01-19 14:38] LABS: BASOPHILS % (AUTO) 2.2 % (0.0-2.0); EOSINOPHILS % (AUTO) 0.1 % (0.0-3.0); MEAN CORPUSCULAR HEMOGLOBIN 33.2 PG (27.0-31.0); MEAN CORPUSCULAR HGB CONC 34.2 G/DL (32.0-36.0); MEAN CORPUSCULAR VOLUME 97 FL (80-99); MEAN PLATELET VOLUME 9.5 FL (6.5-10.1); MONOCYTES % (AUTO) 15.3 % (1.0-10.0); NEUTROPHILS % (AUTO) 63.4 % (45.0-75.0); PLATELET COUNT 248 K/UL (150-450); RED BLOOD COUNT 2.98 M/UL (4.20-5.40); RED CELL DISTRIBUTION WIDTH 13.1 % (11.6-14.8); WHITE BLOOD COUNT 11.3 K/UL (4.8-10.8)
--- NOTE | 2017-01-19 15:15 | General Progress Note ---
Assessment/Plan Assessment/Plan # Acneiform rash of the hands and feet (please refer to pictures/images in the chart under "other reports" to see changes since her admission) ---> given hx of herceptin/perjecta---> begin topical steriods and doxycycline po ---> ID service is on board # Stage II breast cancer (per patient) has been on perjeta and herceptin with Dr. Mendoza in his clinic and now p/w rash likely related to medication ---> currently has not received chemo since 01/11/17, off of it, monitor rash for improvement in next few days, then continue chemo as outpatient # Leukopenia likely related to chemotherapy that was in addition to herpectin and perjeta ----> Improved s/p neupogen # Anemia secondary to chronic disease ---> Anemia w/u has been reviewed, has chronic disease # Anemia rule out Gi bleed # Mucositis and rash related to perjeta very likely (commonly associated with this medication) # Dysphagia related to perjeta likely Subjective Constitutional: Reports: no symptoms HEENT: Reports: no symptoms Cardiovascular: Reports: no symptoms Respiratory: Reports: no symptoms Gastrointestinal/Abdominal: Reports: poor appetite Genitourinary: Reports: no symptoms Neurologic/Psychiatric: Reports: no symptoms Endocrine: Reports: no symptoms Hematologic/Lymphatic: Reports: anemia Allergies: Coded Allergies: No Known Allergies (Unverified , 01/16/17) Subjective hands and feet worse today Objective Last 24 Hour Vital Signs Date Time Temp Pulse Resp B/P Pulse Ox O2 Delivery O2 Flow Rate FiO2 01/19/17 12:00 97.3 90 20 107/47 97 Room Air 01/19/17 08:00 98.1 95 20 107/62 96 Room Air 01/19/17 04:00 98.9 88 18 103/53 97 Room Air 01/19/17 00:00 98.7 95 18 109/54 98 Room Air 01/18/17 20:00 98.7 94 18 111/60 98 Room Air 01/18/17 16:06 98.4 85 20 115/55 98 Room Air Intake and Output 01/18/17 01/19/17 19:00 07:00 Intake Total 1995 ml 80 ml Output Total 2200 ml Balance 1995 ml -2120 ml Intake Oral 1100 ml IV Total 895 ml 80 ml Output Urine Total 2200 ml # Voids 3 # Bowel Movements 1 Laboratory Tests 01/19/17 14:00: White Blood Count 11.3#H, Red Blood Count 2.98L, Hemoglobin 9.9L, Hematocrit 29.0L, Mean Corpuscular Volume 97, Mean Corpuscular Hemoglobin 33.2H, Mean Corpuscular Hemoglobin Concent 34.2, Red Cell Distribution Width 13.1, Platelet Count 248, Mean Platelet Volume 9.5, Neutrophils (%) (Auto) 63.4, Lymphocytes (% ) (Auto) 19.0L, Monocytes (%) (Auto) 15.3H, Eosinophils (%) (Auto) 0.1, Basophils (%) (Auto) 2.2H Height (Feet): 5 Height (Inches): 2.00 Weight (Pounds): 140 Lei Parisi Jan 19, 2017 15:15
--- NOTE | 2017-01-19 15:37 | General Progress Note ---
Assessment/Plan Problem List: (1) Elevated liver enzymes ICD Codes: R74.8 - Abnormal levels of other serum enzymes SNOMED: 863670789, 632011559 (2) Neutropenia ICD Codes: D70.9 - Neutropenia, unspecified SNOMED: 558078500 Qualifiers: Qualified Codes: D70.2 - Other drug-induced agranulocytosis (3) Adverse drug reaction ICD Codes: T88.7XXA - Unspecified adverse effect of drug or medicament, initial encounter SNOMED: 55636100 Qualifiers: Qualified Codes: T88.7XXA - Unspecified adverse effect of drug or medicament , initial encounter Status: unchanged Assessment/Plan rash drug reaction afebrile neutorpenia getting chemo heme/onc on the case for neutropenia treatment rash not improving asked id and heme/onc to evaluate as well the rash and to see if they can add any other treatment on top of what i have ordered for the rash due to neutropenia prednisone is not a good agent to give for this reaction Subjective Allergies: Coded Allergies: No Known Allergies (Unverified , 01/16/17) Subjective rash redness all over Objective Last 24 Hour Vital Signs Date Time Temp Pulse Resp B/P Pulse Ox O2 Delivery O2 Flow Rate FiO2 01/19/17 12:00 97.3 90 20 107/47 97 Room Air 01/19/17 08:00 98.1 95 20 107/62 96 Room Air 01/19/17 04:00 98.9 88 18 103/53 97 Room Air 01/19/17 00:00 98.7 95 18 109/54 98 Room Air 01/18/17 20:00 98.7 94 18 111/60 98 Room Air 01/18/17 16:06 98.4 85 20 115/55 98 Room Air Intake and Output 01/18/17 01/19/17 19:00 07:00 Intake Total 1995 ml 80 ml Output Total 2200 ml Balance 1995 ml -2120 ml Intake Oral 1100 ml IV Total 895 ml 80 ml Output Urine Total 2200 ml # Voids 3 # Bowel Movements 1 Laboratory Tests 01/19/17 14:00: White Blood Count 11.3#H, Red Blood Count 2.98L, Hemoglobin 9.9L, Hematocrit 29.0L, Mean Corpuscular Volume 97, Mean Corpuscular Hemoglobin 33.2H, Mean Corpuscular Hemoglobin Concent 34.2, Red Cell Distribution Width 13.1, Platelet Count 248, Mean Platelet Volume 9.5, Neutrophils (%) (Auto) 63.4, Lymphocytes (% ) (Auto) 19.0L, Monocytes (%) (Auto) 15.3H, Eosinophils (%) (Auto) 0.1, Basophils (%) (Auto) 2.2H Height (Feet): 5 Height (Inches): 2.00 Weight (Pounds): 140 Shannan Oliveros MD Jan 19, 2017 15:37
[2017-01-19 16:00] VITALS: BP 100/45
[2017-01-19] MEDS: Hydrocortisone 1% Oint 30gm TOPIC PRN (17:40)
[2017-01-19 20:00] VITALS: BP 110/63
[2017-01-20] VITALS (7 sets, daily range): BP systolic 97–119; BP diastolic 49–68
--- NOTE | 2017-01-20 01:49 | Wound Care Consultation ---
Wound Assessment Wound Assessment #1: Wound Number: #1 Wound Present on Admission: Yes New Wound: No Status Change of Wound: No Wound Location Body Site Modif: left, right Wound Location Body Site: foot Wound Type: rash Lizbeth Test: Does not Lizbeth Rashes: Localized (Etiology Unk) Percent of Wound [place]/Red: 100 Wound Drainage Amount: None Wound Drainage Odor: None/Absent Tissue Surrounding Wound: Erythemic Wound General Appearance: Reddened Wound Assessment #2: Wound Number: #2 Wound Present on Admission: No New Wound: Yes Status Change of Wound: No Wound Location Body Site Modif: right Wound Location Body Site: hand - extending to wrist Wound Type: traumatic injury - skin tear scattered Lizbeth Test: Does not Lizbeth Wound Thickness: Partial Thickness Percent of Wound [place]/Red: 100 Wound Drainage Description: Serosanguineous Wound Drainage Amount: Scant Wound Drainage Odor: None/Absent Tissue Surrounding Wound: Erythemic Wound General Appearance: Reddened Wound Assessment #3: Wound Number: #3 Wound Present on Admission: No New Wound: Yes Status Change of Wound: No Wound Location Body Site Modif: left Wound Location Body Site: hand Wound Type: traumatic injury - skin tear Lizbeth Test: Does not Lizbeth Wound Thickness: Partial Thickness Wound Length: 2.0 Wound Width: 1.0 Wound Depth: <0.1 Percent of Wound [place]/Red: 100 Wound Drainage Description: Serosanguineous Wound Drainage Amount: Scant Wound Drainage Odor: None/Absent Tissue Surrounding Wound: Erythemic Wound General Appearance: Reddened Wound Assessment #4: Wound Number: #4 Wound Present on Admission: Yes New Wound: No Status Change of Wound: No Wound Location Body Site Modif: left, right Wound Location Body Site: arm Wound Type: scab - scattered dry scabs Lizbeth Test: Does not Lizbeth Wound Thickness: Partial Thickness Percent of Wound [place]/Red: 50 Percent of Wound Black/Brown: 50 - scabs Wound Drainage Amount: None Wound Drainage Odor: None/Absent Tissue Surrounding Wound: Erythemic Wound General Appearance: Reddened Wound Comment #1 left and right foot rash. #2 right hand extending to wrist scattered skin tears. #3 left hand skin tear. #4 right and left arm scattered dry scabs. Recommendation. -Local wound care as ordered. - Keep clean and dry. -Turn and reposition. -Optimize nutrition. -Assess and notify MD for any further change in condition in skin noted. RAUDEL JACOBO Jan 20, 2017 01:49
[2017-01-20] MEDS: Hydrocortisone 1% Oint 30gm TOPIC PRN (08:03)
[2017-01-20] MEDS: Lidocaine 2% Visc 15ml soln ORAL SCH ×4 (08:03→19:17)
[2017-01-20] MEDS: Vitamin A&D Oint 2oz Tube TOPIC SCH ×2 (08:03→22:02)
[2017-01-20] MEDS: Dyna-Hex 2% Top Sol 8oz TOPIC SCH (08:03)
--- NOTE | 2017-01-20 13:40 | General Progress Note ---
Assessment/Plan Problem List: (1) Elevated liver enzymes ICD Codes: R74.8 - Abnormal levels of other serum enzymes SNOMED: 807619716, 896575770 (2) Neutropenia ICD Codes: D70.9 - Neutropenia, unspecified SNOMED: 433824430 Qualifiers: Qualified Codes: D70.2 - Other drug-induced agranulocytosis (3) Adverse drug reaction ICD Codes: T88.7XXA - Unspecified adverse effect of drug or medicament, initial encounter SNOMED: 95432458 Qualifiers: Qualified Codes: T88.7XXA - Unspecified adverse effect of drug or medicament , initial encounter Status: progressing Assessment/Plan chest pain.ordered trop and ekg and dr connor consult on benadryl for rash neutorpenia getting chemo heme/onc on the case for neutropenia treatment rash not improving asked id and heme/onc to evaluate as well the rash and to see if they can add any other treatment on top of what i have ordered for the rash due to neutropenia prednisone is not a good agent to give for this reaction Subjective Cardiovascular: Reports: chest pain Allergies: Coded Allergies: No Known Allergies (Unverified , 01/16/17) Subjective rash redness all over Objective Last 24 Hour Vital Signs Date Time Temp Pulse Resp B/P Pulse Ox O2 Delivery O2 Flow Rate FiO2 01/20/17 12:00 97.7 79 20 97/49 98 Room Air 01/20/17 08:00 98.2 96 20 103/61 97 Room Air 01/20/17 04:00 97.9 98 18 104/55 97 Room Air 01/20/17 00:27 98.1 97 19 108/68 98 Room Air 01/19/17 20:00 98.3 103 18 110/63 98 Room Air 01/19/17 16:00 97.9 93 20 100/45 98 Room Air Intake and Output 01/19/17 01/20/17 19:00 07:00 Intake Total 1800 ml 900 ml Balance 1800 ml 900 ml Intake Oral 840 ml 100 ml IV Total 960 ml 800 ml # Voids 3 3 # Bowel Movements 1 Laboratory Tests 01/19/17 14:00: White Blood Count 11.3#H, Red Blood Count 2.98L, Hemoglobin 9.9L, Hematocrit 29.0L, Mean Corpuscular Volume 97, Mean Corpuscular Hemoglobin 33.2H, Mean Corpuscular Hemoglobin Concent 34.2, Red Cell Distribution Width 13.1, Platelet Count 248, Mean Platelet Volume 9.5, Neutrophils (%) (Auto) 63.4, Lymphocytes (% ) (Auto) 19.0L, Monocytes (%) (Auto) 15.3H, Eosinophils (%) (Auto) 0.1, Basophils (%) (Auto) 2.2H Height (Feet): 5 Height (Inches): 2.00 Weight (Pounds): 140 Shannan Oliveros MD Jan 20, 2017 13:40
[2017-01-20] MEDS ORDERED: Aspirin Baby 81mg ORAL ONE (14:00)
[2017-01-20 14:21] LABS: TROPONIN I < 0.30 ng/mL (<=0.30)
[2017-01-20] MEDS ORDERED: Hydrocortisone 2.5% Oint 30gm TOPIC PRN (15:30)
--- NOTE | 2017-01-20 16:56 | Infectious Diseases Prog Note ---
Assessment/Plan Problems: (1) Neutropenic fever Assessment & Plan: improved , with negative blood and urine culture, monitor off antibiotics .further recommendations as per hematology (2) Adverse drug reaction Assessment & Plan: suspect due to chemo, mainly perjeta , started on doxycycline by oncologist, continue wound care , viral serology is negative (3) Breast cancer Assessment & Plan: s/p chemo x3 , HEM/ONC is following (4) Acid reflux Assessment & Plan: continue ranitidine . Subjective Constitutional: Reports: no symptoms HEENT: Reports: no symptoms Respiratory: Reports: no symptoms Cardiovascular: Reports: no symptoms Gastrointestinal/Abdominal: Reports: no symptoms Genitourinary: Reports: no symptoms Neurologic: Reports: no symptoms Psychiatric: Reports: no symptoms Skin: Reports: rash, ulcer Endocrine: Reports: no symptoms Allergies: Coded Allergies: No Known Allergies (Unverified , 01/16/17) Objective Vital Signs Last 24 Hour Vital Signs Date Time Temp Pulse Resp B/P Pulse Ox O2 Delivery O2 Flow Rate FiO2 01/20/17 16:00 97.5 89 20 109/61 98 Room Air 01/20/17 12:00 97.7 79 20 97/49 98 Room Air 01/20/17 08:00 98.2 96 20 103/61 97 Room Air 01/20/17 04:00 97.9 98 18 104/55 97 Room Air 01/20/17 00:27 98.1 97 19 108/68 98 Room Air 01/19/17 20:00 98.3 103 18 110/63 98 Room Air Height (Feet): 5 Height (Inches): 2.00 Weight (Pounds): 140 General Appearance: WD/WN, no acute distress HEENT: normocephalic, atraumatic, anicteric, mucous membranes moist, PERRL Respiratory/Chest: chest wall non-tender, lungs clear, normal breath sounds, no respiratory distress, no accessory muscle use Cardiovascular: normal peripheral pulses, normal rate, regular rhythm, no gallop/murmur, no JVD Abdomen: normal bowel sounds, soft, non tender, no organomegaly, non distended , no mass, no scars Extremities: no cyanosis, no clubbing Skin: no lesions, rash, ulcers Neurologic/Psychiatric: limited radiology technician II-XII grossly normal, no motor/sensory deficits Lymphatic: no neck adenopathy, no groin adenopathy Musculoskeletal: normal muscle bulk, no effusion Laboratory Tests Test 01/20/17 13:44 Troponin I < 0.30 ng/mL (<=0.30) Current Medications Medications (Trade) Dose Ordered Sig/Demario Route PRN Reason Start Time Stop Time Status Last Admin Dose Admin Acetaminophen 650 mg 650 mg Q4H PRN ORAL Mild Pain/Temp > 100.5 01/16/17 23:30 02/15/17 23:29 01/18/17 07:59 Chlorhexidine Gluconate (Liliana-Hex 2%) 1 applic DAILY TOPIC 01/18/17 15:15 02/17/17 15:14 01/20/17 08:03 Diphenhydramine HCl (Benadryl) 25 mg Q4H PRN IVP Itching 01/19/17 11:00 02/18/17 10:59 Doxycycline Monohydrate (Vibramycin) 100 mg EVERY 12 HOURS ORAL 01/19/17 21:00 01/26/17 20:59 01/20/17 08:03 Hydrocortisone (Hydrocortisone) 1 applic Q6H PRN TOPIC Itching 01/20/17 15:30 02/19/17 15:29 Lidocaine HCl (Xylocaine Viscous) 15 ml THREE TIMES A DAY ORAL 01/18/17 18:00 02/17/17 17:59 01/20/17 12:24 Ranitidine HCl (Zantac) 150 mg BID ORAL 01/18/17 18:00 02/17/17 17:59 01/20/17 08:03 Sodium Chloride (0.45% NS 1000ml) 1,000 ml @ 80 mls/hr [id number] IV 01/17/17 00:00 02/16/17 00:00 01/20/17 11:18 Vitamin A/Vitamin D (A & D Oint) 1 applic Q12HR TOPIC 01/18/17 09:00 02/17/17 08:59 01/19/17 21:29 Payton Zaragoza M.D. Jan 20, 2017 16:56
[2017-01-20] MEDS ORDERED: DiphenhydrAMINE 50mg/ml Inj IVP PRN (19:00)
[2017-01-20] MEDS: Hydrocortisone 2.5% Oint 30gm TOPIC PRN (23:33)
[2017-01-21] VITALS (7 sets, daily range): BP systolic 97–111; BP diastolic 54–64
[2017-01-21] MEDS: Lidocaine 2% Visc 15ml soln ORAL SCH ×3 (08:10→17:40)
[2017-01-21] MEDS: Dyna-Hex 2% Top Sol 8oz TOPIC SCH (08:11)
[2017-01-21] MEDS: Vitamin A&D Oint 2oz Tube TOPIC SCH ×2 (08:11→22:32)
[2017-01-21] MEDS: Hydrocortisone 2.5% Oint 30gm TOPIC PRN ×2 (09:11→22:32)
[2017-01-21 11:54] LABS: BASOPHILS % (AUTO) 2.4 % (0.0-2.0); LYMPHOCYTES % (AUTO) 15.3 % (20.0-45.0); MEAN CORPUSCULAR HEMOGLOBIN 33.5 PG (27.0-31.0); MEAN CORPUSCULAR HGB CONC 33.9 G/DL (32.0-36.0); MEAN CORPUSCULAR VOLUME 99 FL (80-99); MEAN PLATELET VOLUME 8.7 FL (6.5-10.1); NEUTROPHILS % (AUTO) 72.2 % (45.0-75.0); PLATELET COUNT 236 K/UL (150-450); RED BLOOD COUNT 2.95 M/UL (4.20-5.40); RED CELL DISTRIBUTION WIDTH 13.7 % (11.6-14.8); WHITE BLOOD COUNT 13.3 K/UL (4.8-10.8)
--- NOTE | 2017-01-21 12:09 | General Progress Note ---
Assessment/Plan Assessment/Plan # Acneiform rash of the hands and feet (please refer to pictures/images in the chart under "other reports" to see changes since her admission) ---> given hx of herceptin/perjecta---> begin topical steriods and doxycycline po ---> ID service is on board # Stage II breast cancer (per patient) has been on perjeta and herceptin with Dr. Mendoza in his clinic and now p/w rash likely related to medication ---> currently has not received chemo since 01/11/17, off of it, monitor rash for improvement in next few days, then continue chemo as outpatient # Leukopenia likely related to chemotherapy that was in addition to herpectin and perjeta ---> Improved s/p neupogen # Anemia secondary to chronic disease ---> Anemia w/u has been reviewed, has chronic disease # Anemia rule out Gi bleed # Mucositis and rash related to perjeta very likely (commonly associated with this medication) # Dysphagia related to perjeta likely Subjective Date patient seen: Jan 20, 2017 Constitutional: Reports: no symptoms HEENT: Reports: no symptoms Cardiovascular: Reports: no symptoms Respiratory: Reports: no symptoms Gastrointestinal/Abdominal: Reports: difficulty swallowing Genitourinary: Reports: no symptoms Neurologic/Psychiatric: Reports: no symptoms Endocrine: Reports: no symptoms Hematologic/Lymphatic: Reports: anemia Allergies: Coded Allergies: No Known Allergies (Unverified , 01/16/17) Subjective hands and feet worse though may need to get further skin management by wound care Objective Last 24 Hour Vital Signs Date Time Temp Pulse Resp B/P Pulse Ox O2 Delivery O2 Flow Rate FiO2 01/21/17 08:00 98.1 85 19 97/61 97 Room Air 01/21/17 08:00 89 01/21/17 04:00 81 01/21/17 04:00 97.7 83 20 98/55 95 Room Air 01/21/17 00:10 97.7 81 20 108/61 97 Room Air 01/21/17 00:00 84 01/20/17 20:17 97.8 91 20 104/61 97 Room Air 01/20/17 20:00 90 01/20/17 17:45 91 01/20/17 16:00 97.5 89 20 109/61 98 Room Air Intake and Output 01/20/17 01/21/17 19:00 07:00 Intake Total 1120 ml Balance 1120 ml Intake Oral 720 ml IV Total 400 ml # Voids 3 Laboratory Tests 01/20/17 13:44: Troponin I < 0.30 01/21/17 11:00: Troponin I [Pending], White Blood Count 13.3H, Red Blood Count 2.95L, Hemoglobin 9.9L, Hematocrit 29.2L, Mean Corpuscular Volume 99, Mean Corpuscular Hemoglobin 33.5H, Mean Corpuscular Hemoglobin Concent 33.9, Red Cell Distribution Width 13.7, Platelet Count 236, Mean Platelet Volume 8.7, Neutrophils (%) (Auto) 72.2, Lymphocytes (%) (Auto) 15.3L, Monocytes (%) (Auto) 10.0, Eosinophils (%) (Auto) 0.0, Basophils (%) (Auto) 2.4H, Sodium Level [ Pending], Potassium Level [Pending], Chloride Level [Pending], Carbon Dioxide Level [Pending], Blood Urea Nitrogen [Pending], Creatinine [Pending], Estimat Glomerular Filtration Rate [Pending], Glucose Level [Pending], Calcium Level [ Pending], Total Bilirubin [Pending], Aspartate Amino Transf (AST/SGOT) [Pending] , Alanine Aminotransferase (ALT/SGPT) [Pending], Alkaline Phosphatase [Pending] , Total Protein [Pending], Albumin [Pending], Globulin [Pending] Height (Feet): 5 Height (Inches): 2.00 Weight (Pounds): 140 General Appearance: no apparent distress EENT: normal ENT inspection Neck: normal alignment Cardiovascular: regular rhythm Respiratory/Chest: no respiratory distress Extremities: normal range of motion Edema: 1+ Leg (L), 1+ Leg (R) Edema: mild edema Neurologic: no motor/sensory deficits Skin: warm/dry Lei Parisi Jan 21, 2017 12:09
[2017-01-21 12:20] LABS: TROPONIN I < 0.30 ng/mL (<=0.30)
[2017-01-21 12:33] LABS: ALANINE AMINOTRANSFERASE 46 U/L (3-33); ALBUMIN/GLOBULIN RATIO 1.3 (1.0-2.7); ANION GAP 15 (5-15); ASPARTATE AMINO TRANSFERASE 32 U/L (5-40); CALCIUM 9.2 mg/dL (8.6-10.2); CARBON DIOXIDE 24 mEQ/L (20-30); CHLORIDE 101 mEQ/L (98-107); CREATININE 0.7 mg/dL (0.5-0.9); GLOMERULAR FILTRATION RATE > 60 mL/min (>60); HEMOLYSIS 3; POTASSIUM 3.6 mEQ/L (3.4-4.9); SODIUM 140 mEQ/L (135-145); TOTAL PROTEIN 6.4 g/dL (6.6-8.7)
--- NOTE | 2017-01-21 16:35 | Infectious Diseases Prog Note ---
Assessment/Plan Problems: (1) Neutropenic fever Assessment & Plan: improved , with negative blood and urine culture, monitor off antibiotics .further recommendations as per hematology (2) Adverse drug reaction Assessment & Plan: suspect due to chemo, mainly perjeta , started on doxycycline by oncologist, continue wound care , viral serology is negative (3) Breast cancer Assessment & Plan: s/p chemo x3 , hold chemo for now , follow up with HEM/ONC (4) Acid reflux Assessment & Plan: continue ranitidine . Subjective Constitutional: Reports: no symptoms HEENT: Reports: no symptoms Respiratory: Reports: dry cough, no symptoms Breasts: Reports: no symptoms Cardiovascular: Reports: no symptoms Gastrointestinal/Abdominal: Reports: nausea, no symptoms Genitourinary: Reports: no symptoms Neurologic: Reports: no symptoms Psychiatric: Reports: no symptoms Skin: Reports: other - redness, ulcer Endocrine: Reports: no symptoms Hematologic: Reports: no symptoms Allergies: Coded Allergies: No Known Allergies (Unverified , 01/16/17) Objective Vital Signs Last 24 Hour Vital Signs Date Time Temp Pulse Resp B/P Pulse Ox O2 Delivery O2 Flow Rate FiO2 01/21/17 16:00 98.2 93 19 111/54 99 Room Air 01/21/17 12:00 97.6 86 18 103/58 97 Room Air 01/21/17 12:00 86 01/21/17 08:00 98.1 85 19 97/61 97 Room Air 01/21/17 08:00 89 01/21/17 04:00 81 01/21/17 04:00 97.7 83 20 98/55 95 Room Air 01/21/17 00:10 97.7 81 20 108/61 97 Room Air 01/21/17 00:00 84 01/20/17 20:17 97.8 91 20 104/61 97 Room Air 01/20/17 20:00 90 01/20/17 17:45 91 Height (Feet): 5 Height (Inches): 2.00 Weight (Pounds): 140 General Appearance: WD/WN, no acute distress HEENT: normocephalic, atraumatic, anicteric, mucous membranes moist, PERRL Respiratory/Chest: chest wall non-tender, lungs clear, normal breath sounds, no respiratory distress, no accessory muscle use Cardiovascular: normal peripheral pulses, normal rate, regular rhythm, no gallop/murmur, no JVD Abdomen: normal bowel sounds, soft, non tender, no organomegaly, non distended , no mass, no scars Extremities: no cyanosis, no clubbing, other - redness, and blisters Laboratory Tests Test 01/21/17 11:00 White Blood Count 13.3 K/UL (4.8-10.8) H Red Blood Count 2.95 M/UL (4.20-5.40) L Hemoglobin 9.9 G/DL (12.0-16.0) L Hematocrit 29.2 % (37.0-47.0) L Mean Corpuscular Volume 99 FL (80-99) Mean Corpuscular Hemoglobin 33.5 PG (27.0-31.0) H Mean Corpuscular Hemoglobin Concent 33.9 G/DL (32.0-36.0) Red Cell Distribution Width 13.7 % (11.6-14.8) Platelet Count 236 K/UL (150-450) Mean Platelet Volume 8.7 FL (6.5-10.1) Neutrophils (%) (Auto) 72.2 % (45.0-75.0) Lymphocytes (%) (Auto) 15.3 % (20.0-45.0) L Monocytes (%) (Auto) 10.0 % (1.0-10.0) Eosinophils (%) (Auto) 0.0 % (0.0-3.0) Basophils (%) (Auto) 2.4 % (0.0-2.0) H Sodium Level 140 mEQ/L (135-145) Potassium Level 3.6 mEQ/L (3.4-4.9) Chloride Level 101 mEQ/L (98-107) Carbon Dioxide Level 24 mEQ/L (20-30) Anion Gap 15 (5-15) Blood Urea Nitrogen 6 mg/dL (7-23) L Creatinine 0.7 mg/dL (0.5-0.9) Estimat Glomerular Filtration Rate > 60 mL/min (>60) Glucose Level 128 mg/dL (74-106) H Calcium Level 9.2 mg/dL (8.6-10.2) Total Bilirubin < 0.2 mg/dL (0.0-1.2) Aspartate Amino Transf (AST/SGOT) 32 U/L (5-40) Alanine Aminotransferase (ALT/SGPT) 46 U/L (3-33) H Alkaline Phosphatase 97 U/L (35-104) Troponin I < 0.30 ng/mL (<=0.30) Total Protein 6.4 g/dL (6.6-8.7) L Albumin 3.7 g/dL (3.5-5.2) Globulin 2.7 g/dL Albumin/Globulin Ratio 1.3 (1.0-2.7) Current Medications Medications (Trade) Dose Ordered Sig/Demario Route PRN Reason Start Time Stop Time Status Last Admin Dose Admin Acetaminophen (Tylenol) 650 mg Q4H PRN ORAL Mild Pain/Temp > 100.5 01/20/17 18:30 02/19/17 18:29 Chlorhexidine Gluconate (Liliana-Hex 2%) 1 applic DAILY TOPIC 01/21/17 09:00 02/20/17 08:59 01/21/17 08:11 Diphenhydramine HCl (Benadryl) 25 mg Q4H PRN IVP Itching 01/20/17 19:00 02/19/17 18:59 Doxycycline Monohydrate (Vibramycin) 100 mg EVERY 12 HOURS ORAL 01/20/17 21:00 01/27/17 20:59 01/21/17 08:10 Hydrocortisone (Hydrocortisone) 1 applic Q6H PRN TOPIC Itching 01/20/17 21:30 02/19/17 21:29 01/21/17 09:11 Lidocaine HCl (Xylocaine Viscous) 15 ml THREE TIMES A DAY ORAL 01/20/17 18:00 02/19/17 17:59 01/21/17 13:14 Ranitidine HCl (Zantac) 150 mg BID ORAL 01/20/17 18:00 02/19/17 17:59 01/21/17 08:11 Vitamin A/Vitamin D (A & D Oint) 1 applic Q12HR TOPIC 01/20/17 21:00 02/19/17 20:59 01/21/17 08:11 Payton Zaragoza M.D. Jan 21, 2017 16:35
--- NOTE | 2017-01-21 21:05 | General Progress Note ---
Assessment/Plan Problem List: (1) Elevated liver enzymes ICD Codes: R74.8 - Abnormal levels of other serum enzymes SNOMED: 555440934, 874203969 (2) Neutropenia ICD Codes: D70.9 - Neutropenia, unspecified SNOMED: 735091079 Qualifiers: Qualified Codes: D70.2 - Other drug-induced agranulocytosis (3) Adverse drug reaction ICD Codes: T88.7XXA - Unspecified adverse effect of drug or medicament, initial encounter SNOMED: 85001768 Qualifiers: Qualified Codes: T88.7XXA - Unspecified adverse effect of drug or medicament , initial encounter Status: progressing Assessment/Plan chest pain.ordered trop and ekg and dr connor consult on benadryl for rash neutorpenia getting chemo heme/onc on the case for neutropenia treatment on topical steroid and ranitidene for rash breast cancer Subjective Allergies: Coded Allergies: No Known Allergies (Unverified , 01/16/17) Subjective rash redness all over Objective Last 24 Hour Vital Signs Date Time Temp Pulse Resp B/P Pulse Ox O2 Delivery O2 Flow Rate FiO2 01/21/17 20:00 98.1 91 20 106/64 97 Room Air 01/21/17 16:00 98.2 93 19 111/54 99 Room Air 01/21/17 16:00 83 01/21/17 12:00 97.6 86 18 103/58 97 Room Air 01/21/17 12:00 86 01/21/17 08:00 98.1 85 19 97/61 97 Room Air 01/21/17 08:00 89 01/21/17 04:00 81 01/21/17 04:00 97.7 83 20 98/55 95 Room Air 01/21/17 00:10 97.7 81 20 108/61 97 Room Air 01/21/17 00:00 98.1 91 20 106/64 97 Room Air 01/21/17 00:00 84 Intake and Output 01/20/17 01/21/17 19:00 07:00 Intake Total 1120 ml Balance 1120 ml Intake Oral 720 ml IV Total 400 ml # Voids 3 Laboratory Tests 01/21/17 11:00: White Blood Count 13.3H, Red Blood Count 2.95L, Hemoglobin 9.9L, Hematocrit 29.2L, Mean Corpuscular Volume 99, Mean Corpuscular Hemoglobin 33.5H, Mean Corpuscular Hemoglobin Concent 33.9, Red Cell Distribution Width 13.7, Platelet Count 236, Mean Platelet Volume 8.7, Neutrophils (%) (Auto) 72.2, Lymphocytes (% ) (Auto) 15.3L, Monocytes (%) (Auto) 10.0, Eosinophils (%) (Auto) 0.0, Basophils (%) (Auto) 2.4H, Sodium Level 140, Potassium Level 3.6, Chloride Level 101, Carbon Dioxide Level 24, Anion Gap 15, Blood Urea Nitrogen 6L, Creatinine 0.7, Estimat Glomerular Filtration Rate > 60, Glucose Level 128H, Calcium Level 9.2, Total Bilirubin < 0.2, Aspartate Amino Transf (AST/SGOT) 32, Alanine Aminotransferase (ALT/SGPT) 46H, Alkaline Phosphatase 97, Troponin I < 0.30, Total Protein 6.4L, Albumin 3.7, Globulin 2.7, Albumin/Globulin Ratio 1.3 Height (Feet): 5 Height (Inches): 2.00 Weight (Pounds): 140 Shannan Oliveros MD Jan 21, 2017 21:05
[2017-01-22] VITALS: BP 98/51
[2017-01-22 04:00] VITALS: BP 93/59
[2017-01-22 07:24] LABS: BASOPHILS % (AUTO) 3.8 % (0.0-2.0); LYMPHOCYTES % (AUTO) 18.4 % (20.0-45.0); MEAN CORPUSCULAR HEMOGLOBIN 33.4 PG (27.0-31.0); MEAN CORPUSCULAR HGB CONC 33.7 G/DL (32.0-36.0); MEAN CORPUSCULAR VOLUME 99 FL (80-99); MEAN PLATELET VOLUME 8.4 FL (6.5-10.1); MONOCYTES % (AUTO) 13.8 % (1.0-10.0); NEUTROPHILS % (AUTO) 63.9 % (45.0-75.0); PLATELET COUNT 234 K/UL (150-450); RED BLOOD COUNT 2.93 M/UL (4.20-5.40); RED CELL DISTRIBUTION WIDTH 13.9 % (11.6-14.8); WHITE BLOOD COUNT 10.7 K/UL (4.8-10.8)
[2017-01-22 08:02] LABS: ALANINE AMINOTRANSFERASE 38 U/L (3-33); ALBUMIN/GLOBULIN RATIO 1.3 (1.0-2.7); ANION GAP 14 (5-15); ASPARTATE AMINO TRANSFERASE 27 U/L (5-40); CALCIUM 9.3 mg/dL (8.6-10.2); CARBON DIOXIDE 24 mEQ/L (20-30); CHLORIDE 105 mEQ/L (98-107); CHOLESTEROL 138 mg/dL (< 200); CHOLESTEROL/HDL RATIO 3.1 (3.3-4.4); CREATININE 0.7 mg/dL (0.5-0.9); GLOMERULAR FILTRATION RATE > 60 mL/min (>60); HEMOLYSIS 6; LDL CHOLESTEROL (CALC.) 73 mg/dL (60-99); POTASSIUM 4.3 mEQ/L (3.4-4.9); SODIUM 143 mEQ/L (135-145); TOTAL PROTEIN 5.9 g/dL (6.6-8.7)
[2017-01-22 08:14] VITALS: BP 108/62
[2017-01-22] MEDS: Vitamin A&D Oint 2oz Tube TOPIC SCH ×2 (10:29→20:49)
[2017-01-22] MEDS: Lidocaine 2% Visc 15ml soln ORAL SCH ×3 (10:29→20:08)
[2017-01-22] MEDS: Dyna-Hex 2% Top Sol 8oz TOPIC SCH (10:29)
[2017-01-22 12:19] VITALS: BP 120/70
--- NOTE | 2017-01-22 12:52 | Infectious Diseases Prog Note ---
Assessment/Plan Problems: (1) Neutropenic fever Assessment & Plan: improved , with negative blood and urine culture, off antibiotics .monitor cbc, further recommendations as per hematology (2) Adverse drug reaction Assessment & Plan: suspect due to chemo, mainly perjeta , on doxycycline by oncologist, continue local wound care , viral serology is negative (3) Breast cancer Assessment & Plan: s/p chemo x3 , hold chemo for now , follow up with HEM/ONC (4) Acid reflux Assessment & Plan: continue ranitidine . Subjective Constitutional: Reports: no symptoms HEENT: Reports: no symptoms Respiratory: Reports: no symptoms Breasts: Reports: no symptoms Cardiovascular: Reports: no symptoms Gastrointestinal/Abdominal: Reports: no symptoms Genitourinary: Reports: no symptoms Neurologic: Reports: no symptoms Psychiatric: Reports: no symptoms Skin: Reports: rash, ulcer Allergies: Coded Allergies: No Known Allergies (Unverified , 01/16/17) Subjective she still has multiple area of skin redness comes and go mainly in the legs Objective Vital Signs Last 24 Hour Vital Signs Date Time Temp Pulse Resp B/P Pulse Ox O2 Delivery O2 Flow Rate FiO2 01/22/17 12:19 97.9 83 18 120/70 97 Room Air 01/22/17 08:14 98.2 92 18 108/62 98 Room Air 01/22/17 08:00 93 01/22/17 04:27 91 01/22/17 04:00 98.2 81 20 93/59 98 Room Air 01/22/17 00:00 86 01/22/17 00:00 98.1 83 20 98/51 97 Room Air 01/21/17 20:00 86 01/21/17 20:00 98.1 91 20 106/64 97 Room Air 01/21/17 16:00 98.2 93 19 111/54 99 Room Air 01/21/17 16:00 83 Height (Feet): 5 Height (Inches): 2.00 Weight (Pounds): 140 General Appearance: WD/WN, no acute distress HEENT: normocephalic, atraumatic, anicteric, mucous membranes moist Respiratory/Chest: chest wall non-tender, lungs clear, normal breath sounds, no respiratory distress, no accessory muscle use Cardiovascular: normal peripheral pulses, normal rate, regular rhythm, no gallop/murmur, no JVD Abdomen: normal bowel sounds, soft, non tender, no organomegaly, non distended , no mass Extremities: no cyanosis, no clubbing, other - redness and bruises Skin: rash, ulcers Laboratory Tests Test 01/22/17 05:45 White Blood Count 10.7 K/UL (4.8-10.8) Red Blood Count 2.93 M/UL (4.20-5.40) L Hemoglobin 9.8 G/DL (12.0-16.0) L Hematocrit 29.0 % (37.0-47.0) L Mean Corpuscular Volume 99 FL (80-99) Mean Corpuscular Hemoglobin 33.4 PG (27.0-31.0) H Mean Corpuscular Hemoglobin Concent 33.7 G/DL (32.0-36.0) Red Cell Distribution Width 13.9 % (11.6-14.8) Platelet Count 234 K/UL (150-450) Mean Platelet Volume 8.4 FL (6.5-10.1) Neutrophils (%) (Auto) 63.9 % (45.0-75.0) Lymphocytes (%) (Auto) 18.4 % (20.0-45.0) L Monocytes (%) (Auto) 13.8 % (1.0-10.0) H Eosinophils (%) (Auto) 0.0 % (0.0-3.0) Basophils (%) (Auto) 3.8 % (0.0-2.0) H Sodium Level 143 mEQ/L (135-145) Potassium Level 4.3 mEQ/L (3.4-4.9) Chloride Level 105 mEQ/L (98-107) Carbon Dioxide Level 24 mEQ/L (20-30) Anion Gap 14 (5-15) Blood Urea Nitrogen 9 mg/dL (7-23) Creatinine 0.7 mg/dL (0.5-0.9) Estimat Glomerular Filtration Rate > 60 mL/min (>60) Glucose Level 91 mg/dL (74-106) Calcium Level 9.3 mg/dL (8.6-10.2) Total Bilirubin < 0.2 mg/dL (0.0-1.2) Aspartate Amino Transf (AST/SGOT) 27 U/L (5-40) Alanine Aminotransferase (ALT/SGPT) 38 U/L (3-33) H Alkaline Phosphatase 163 U/L (35-104) H Total Protein 5.9 g/dL (6.6-8.7) L Albumin 3.4 g/dL (3.5-5.2) L Globulin 2.5 g/dL Albumin/Globulin Ratio 1.3 (1.0-2.7) Triglycerides Level 98 mg/dL (< 150) Cholesterol Level 138 mg/dL (< 200) LDL Cholesterol 73 mg/dL (60-99) HDL Cholesterol 45 mg/dL (> 60) Cholesterol/HDL Ratio 3.1 (3.3-4.4) L Current Medications Medications (Trade) Dose Ordered Sig/Demario Route PRN Reason Start Time Stop Time Status Last Admin Dose Admin Acetaminophen (Tylenol) 650 mg Q4H PRN ORAL Mild Pain/Temp > 100.5 01/20/17 18:30 02/19/17 18:29 Chlorhexidine Gluconate (Liliana-Hex 2%) 1 applic DAILY TOPIC 01/21/17 09:00 02/20/17 08:59 01/22/17 10:29 Diphenhydramine HCl (Benadryl) 25 mg Q4H PRN IVP Itching 01/20/17 19:00 02/19/17 18:59 Doxycycline Monohydrate (Vibramycin) 100 mg EVERY 12 HOURS ORAL 01/20/17 21:00 01/27/17 20:59 01/22/17 10:29 Hydrocortisone (Hydrocortisone) 1 applic Q6H PRN TOPIC Itching 01/20/17 21:30 02/19/17 21:29 01/21/17 22:32 Lidocaine HCl (Xylocaine Viscous) 15 ml THREE TIMES A DAY ORAL 01/20/17 18:00 02/19/17 17:59 01/22/17 10:29 Ranitidine HCl (Zantac) 150 mg BID ORAL 01/20/17 18:00 02/19/17 17:59 01/22/17 10:28 Vitamin A/Vitamin D (A & D Oint) 1 applic Q12HR TOPIC 01/20/17 21:00 02/19/17 20:59 01/22/17 10:29 Payton Zaragoza M.D. Jan 22, 2017 12:52
--- NOTE | 2017-01-22 16:13 | General Progress Note ---
Assessment/Plan Problem List: (1) Elevated liver enzymes ICD Codes: R74.8 - Abnormal levels of other serum enzymes SNOMED: 559621024, 040988244 (2) Neutropenia ICD Codes: D70.9 - Neutropenia, unspecified SNOMED: 971198020 Qualifiers: Qualified Codes: D70.2 - Other drug-induced agranulocytosis (3) Adverse drug reaction ICD Codes: T88.7XXA - Unspecified adverse effect of drug or medicament, initial encounter SNOMED: 37912643 Qualifiers: Qualified Codes: T88.7XXA - Unspecified adverse effect of drug or medicament , initial encounter Status: progressing Assessment/Plan rash improved cleared by heme/onc for dc see dc summary for details Subjective Allergies: Coded Allergies: No Known Allergies (Unverified , 01/16/17) Subjective rash redness all over Objective Last 24 Hour Vital Signs Date Time Temp Pulse Resp B/P Pulse Ox O2 Delivery O2 Flow Rate FiO2 01/22/17 12:19 97.9 83 18 120/70 97 Room Air 01/22/17 12:00 78 01/22/17 08:14 98.2 92 18 108/62 98 Room Air 01/22/17 08:00 93 01/22/17 04:27 91 01/22/17 04:00 98.2 81 20 93/59 98 Room Air 01/22/17 00:00 86 01/22/17 00:00 98.1 83 20 98/51 97 Room Air 01/21/17 20:00 86 01/21/17 20:00 98.1 91 20 106/64 97 Room Air Intake and Output 01/21/17 01/22/17 19:00 07:00 Intake Total 838 ml 200 ml Balance 838 ml 200 ml Intake Oral 400 ml 200 ml IV Total 438 ml # Voids 1 Laboratory Tests 01/22/17 05:45: White Blood Count 10.7, Red Blood Count 2.93L, Hemoglobin 9.8L, Hematocrit 29.0L , Mean Corpuscular Volume 99, Mean Corpuscular Hemoglobin 33.4H, Mean Corpuscular Hemoglobin Concent 33.7, Red Cell Distribution Width 13.9, Platelet Count 234, Mean Platelet Volume 8.4, Neutrophils (%) (Auto) 63.9, Lymphocytes (% ) (Auto) 18.4L, Monocytes (%) (Auto) 13.8H, Eosinophils (%) (Auto) 0.0, Basophils (%) (Auto) 3.8H, Sodium Level 143, Potassium Level 4.3, Chloride Level 105, Carbon Dioxide Level 24, Anion Gap 14, Blood Urea Nitrogen 9, Creatinine 0.7, Estimat Glomerular Filtration Rate > 60, Glucose Level 91, Calcium Level 9.3, Total Bilirubin < 0.2, Aspartate Amino Transf (AST/SGOT) 27, Alanine Aminotransferase (ALT/SGPT) 38H, Alkaline Phosphatase 163H, Total Protein 5.9L, Albumin 3.4L, Globulin 2.5, Albumin/Globulin Ratio 1.3, Triglycerides Level 98, Cholesterol Level 138, LDL Cholesterol 73, HDL Cholesterol 45, Cholesterol/HDL Ratio 3.1L Height (Feet): 5 Height (Inches): 2.00 Weight (Pounds): 140 Shannan Oliveros MD Jan 22, 2017 16:13
[2017-01-22 16:14] VITALS: BP 107/62
[2017-01-22] MEDS: Hydrocortisone 2.5% Oint 30gm TOPIC PRN (16:49)
--- NOTE | 2017-01-22 17:45 | Cardiology Progress Note ---
Assessment/Plan Assessment/Plan The patient is seen and examined, full consult note is dictated. Objective Last 24 Hour Vital Signs Date Time Temp Pulse Resp B/P Pulse Ox O2 Delivery O2 Flow Rate FiO2 01/22/17 16:14 97.7 84 18 107/62 97 Room Air 01/22/17 12:19 97.9 83 18 120/70 97 Room Air 01/22/17 12:00 78 01/22/17 08:14 98.2 92 18 108/62 98 Room Air 01/22/17 08:00 93 01/22/17 04:27 91 01/22/17 04:00 98.2 81 20 93/59 98 Room Air 01/22/17 00:00 86 01/22/17 00:00 98.1 83 20 98/51 97 Room Air 01/21/17 20:00 86 01/21/17 20:00 98.1 91 20 106/64 97 Room Air Intake and Output 01/21/17 01/22/17 19:00 07:00 Intake Total 838 ml 200 ml Balance 838 ml 200 ml Intake Oral 400 ml 200 ml IV Total 438 ml # Voids 1 Laboratory Tests Test 01/22/17 05:45 White Blood Count 10.7 K/UL (4.8-10.8) Red Blood Count 2.93 M/UL (4.20-5.40) L Hemoglobin 9.8 G/DL (12.0-16.0) L Hematocrit 29.0 % (37.0-47.0) L Mean Corpuscular Volume 99 FL (80-99) Mean Corpuscular Hemoglobin 33.4 PG (27.0-31.0) H Mean Corpuscular Hemoglobin Concent 33.7 G/DL (32.0-36.0) Red Cell Distribution Width 13.9 % (11.6-14.8) Platelet Count 234 K/UL (150-450) Mean Platelet Volume 8.4 FL (6.5-10.1) Neutrophils (%) (Auto) 63.9 % (45.0-75.0) Lymphocytes (%) (Auto) 18.4 % (20.0-45.0) L Monocytes (%) (Auto) 13.8 % (1.0-10.0) H Eosinophils (%) (Auto) 0.0 % (0.0-3.0) Basophils (%) (Auto) 3.8 % (0.0-2.0) H Sodium Level 143 mEQ/L (135-145) Potassium Level 4.3 mEQ/L (3.4-4.9) Chloride Level 105 mEQ/L (98-107) Carbon Dioxide Level 24 mEQ/L (20-30) Anion Gap 14 (5-15) Blood Urea Nitrogen 9 mg/dL (7-23) Creatinine 0.7 mg/dL (0.5-0.9) Estimat Glomerular Filtration Rate > 60 mL/min (>60) Glucose Level 91 mg/dL (74-106) Calcium Level 9.3 mg/dL (8.6-10.2) Total Bilirubin < 0.2 mg/dL (0.0-1.2) Aspartate Amino Transf (AST/SGOT) 27 U/L (5-40) Alanine Aminotransferase (ALT/SGPT) 38 U/L (3-33) H Alkaline Phosphatase 163 U/L (35-104) H Total Protein 5.9 g/dL (6.6-8.7) L Albumin 3.4 g/dL (3.5-5.2) L Globulin 2.5 g/dL Albumin/Globulin Ratio 1.3 (1.0-2.7) Triglycerides Level 98 mg/dL (< 150) Cholesterol Level 138 mg/dL (< 200) LDL Cholesterol 73 mg/dL (60-99) HDL Cholesterol 45 mg/dL (> 60) Cholesterol/HDL Ratio 3.1 (3.3-4.4) L RACH ARREAGA Jan 22, 2017 17:45
--- NOTE | 2017-01-22 19:30 | Cardiology Report ---
APPROVED REPORT EXAM: Two-dimensional and M-mode echocardiogram with Doppler and color Doppler. INDICATION Chest Pain M-Mode DIMENSIONS IVSd0.8 (0.7-1.1cm)Left Atrium (MM)3.2 (1.6-4.0cm) LVDd4.7 (3.5-5.6cm)Aortic Root2.4 (2.0-3.7cm) PWd0.7 (0.7-1.1cm)Aortic Cusp Exc.1.7 (1.5-2.0cm) LVDs2.9 (2.5-4.0cm) PWs1.1 cm Normal left ventricular chamber size, systolic function and wall motion. Left ventricular ejection fraction estimated to be 55-60 %. No evidence of left ventricular hypertrophy. No evidence of pericardial fat or effusion. All other cardiac chamber sizes are within normal limits. Focal aortic valve sclerosis with adequate cusp excursion Thickened mitral valve leaflets with normal excursion. Mitral annulus and aortic root calcification. Pulmonic valve not well visualized. Normal tricuspid valve structure. IVC is normal in size with physiologic collapse. A color flow and spectral Doppler study was performed and revealed: No aortic regurgitation. Trace mitral regurgitation. Normal left ventricular diastolic function. No tricuspid regurgitation.
[2017-01-22 20:00] VITALS: BP 114/64
--- NOTE | 2017-01-22 20:09 | Cardiology Report ---
APPROVED REPORT EKG Measurement Heart [id number] Normal sinus rhythm Nonspecific ST abnormality Abnormal ECG
--- NOTE | 2017-01-22 22:24 | General Progress Note ---
Assessment/Plan Assessment/Plan # Acneiform rash of the hands and feet (please refer to pictures/images in the chart under "other reports" to see changes since her admission) ---> given hx of herceptin/perjecta---> begin topical steriods and doxycycline po. Is very slowly improving ---> ID service is on board # Stage II breast cancer (per patient) has been on perjeta and herceptin with Dr. Mendoza in his clinic and now p/w rash likely related to medication ---> currently has not received chemo since 01/11/17, off of it, monitor rash for improvement in next few days, then continue chemo as outpatient # Leukopenia likely related to chemotherapy that was in addition to herpectin and perjeta ---> Improved s/p neupogen # Anemia secondary to chronic disease ---> Anemia w/u has been reviewed, has chronic disease # Anemia rule out Gi bleed # Mucositis and rash related to perjeta very likely (commonly associated with this medication) # Dysphagia related to perjeta likely Subjective Constitutional: Reports: no symptoms HEENT: Reports: no symptoms Cardiovascular: Reports: no symptoms Respiratory: Reports: no symptoms Gastrointestinal/Abdominal: Reports: no symptoms Genitourinary: Reports: no symptoms Neurologic/Psychiatric: Reports: no symptoms Endocrine: Reports: no symptoms Hematologic/Lymphatic: Reports: anemia Allergies: Coded Allergies: No Known Allergies (Unverified , 01/16/17) Subjective hands and feet very slowly improving Objective Last 24 Hour Vital Signs Date Time Temp Pulse Resp B/P Pulse Ox O2 Delivery O2 Flow Rate FiO2 01/22/17 20:00 97.5 86 20 114/64 97 Room Air 01/22/17 16:14 97.7 84 18 107/62 97 Room Air 01/22/17 16:00 78 01/22/17 12:19 97.9 83 18 120/70 97 Room Air 01/22/17 12:00 78 01/22/17 08:14 98.2 92 18 108/62 98 Room Air 01/22/17 08:00 93 01/22/17 04:27 91 01/22/17 04:00 98.2 81 20 93/59 98 Room Air 01/22/17 00:00 86 01/22/17 00:00 98.1 83 20 98/51 97 Room Air Intake and Output 01/21/17 01/22/17 19:00 07:00 Intake Total 838 ml 200 ml Balance 838 ml 200 ml Intake Oral 400 ml 200 ml IV Total 438 ml # Voids 1 Laboratory Tests 01/22/17 05:45: White Blood Count 10.7, Red Blood Count 2.93L, Hemoglobin 9.8L, Hematocrit 29.0L , Mean Corpuscular Volume 99, Mean Corpuscular Hemoglobin 33.4H, Mean Corpuscular Hemoglobin Concent 33.7, Red Cell Distribution Width 13.9, Platelet Count 234, Mean Platelet Volume 8.4, Neutrophils (%) (Auto) 63.9, Lymphocytes (% ) (Auto) 18.4L, Monocytes (%) (Auto) 13.8H, Eosinophils (%) (Auto) 0.0, Basophils (%) (Auto) 3.8H, Sodium Level 143, Potassium Level 4.3, Chloride Level 105, Carbon Dioxide Level 24, Anion Gap 14, Blood Urea Nitrogen 9, Creatinine 0.7, Estimat Glomerular Filtration Rate > 60, Glucose Level 91, Calcium Level 9.3, Total Bilirubin < 0.2, Aspartate Amino Transf (AST/SGOT) 27, Alanine Aminotransferase (ALT/SGPT) 38H, Alkaline Phosphatase 163H, Total Protein 5.9L, Albumin 3.4L, Globulin 2.5, Albumin/Globulin Ratio 1.3, Triglycerides Level 98, Cholesterol Level 138, LDL Cholesterol 73, HDL Cholesterol 45, Cholesterol/HDL Ratio 3.1L Height (Feet): 5 Height (Inches): 2.00 Weight (Pounds): 140 General Appearance: no apparent distress EENT: normal ENT inspection Neck: normal alignment Cardiovascular: normal rate Respiratory/Chest: lungs clear Abdomen: non tender Extremities: non-tender Edema: 2+ Arm (L), 2+ Arm (R), 2+ Pedal (L), 2+ Pedal (R) 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
[2017-01-22] MEDS ORDERED: DiphenhydrAMINE 50mg/ml Inj IVP PRN (23:00)
[2017-01-23] VITALS: BP 100/55
--- NOTE | 2017-01-23 00:01 | Consultation ---
DATE OF CONSULTATION: 01/22/2017 CARDIOLOGY CONSULTATION REFERRING PHYSICIAN: Shannan Oliveros M.D. REASON FOR CONSULTATION: Management of chest pain. HISTORY OF PRESENT ILLNESS: The patient is a very unfortunate 61-year-old female, who presents to the emergency department with progressively rash with blistering of the skin, however, vaginal mucosal that has been happening following chemotherapy. She has had the symptoms about two days ago before she decided to come to the hospital. The patient while in the hospital was started on an intravenous hydration and was admitted to Med/Surg unit. During her stay, she started to feel chest pain described as squeezing, nonradiating that lasted just about half an hour at the time of the chest pain. A 12-lead electrocardiogram showed sinus rhythm with no evidence of ST and T-wave abnormalities. Troponins x2 were negative. The patient however was transferred to telemetry for observation of the chest pain. PAST MEDICAL HISTORY: Includes history of breast cancer, status post chemotherapy. No radiation has been done. History of gastritis due to chemotherapy. PAST SURGICAL HISTORY: None. MEDICATIONS: Medications at home none. The patient received chemotherapy in the doctor's office. ALLERGIES: No known drug allergies. SOCIAL HISTORY: Lives at home with family. Denies any history of tobacco, alcohol, or illicit drug use. FAMILY HISTORY: No premature coronary artery disease in first-degree relatives. REVIEW OF SYSTEMS: HEENT: Denies any headache, diplopia, or blurred vision. Constitutional: Complains of generalized weakness, rash, also fever, weakness as well as weight loss. Cardiovascular: She has chest pain as mentioned above. The chest pain is recurrent and she had a similar event right after chemotherapy in January 07, 2017, which was the last course of chemotherapy. Denies any shortness of breath with activities. Denies any PND, orthopnea, or leg swelling. Pulmonary: Denies any cough, hemoptysis, or wheezing. Gastrointestinal: Denies any nausea, vomiting, diarrhea, constipation, abdominal pain, or GI bleed. Genitourinary: Denies any hematuria, dysuria, or incontinence. Neurology: Denies any motor dysfunction, sensory deficit, or altered speech. Dermatology: She has got erythematous rash with associated exfoliation, blister formation, and loss of epidermis. PHYSICAL EXAMINATION: VITAL SIGNS: Blood pressure at time of arrival to the hospital 120/72, pulse of 98, respirations of 20, temperature 99.2 degrees Fahrenheit, and O2 saturation 98% on room air. GENERAL: The patient is a very unfortunate, 61-year-old female, in no apparent respiratory distress. GCS of 15. HEENT: Atraumatic and normocephalic. Anicteric. Pupils are equal, round, and reactive to light and accommodation. Extraocular muscles intact. NECK: JVP is less than 5 cm. No carotid bruits. Carotid upstrokes 2+ bilaterally. CVS: Normal S1 and S2. Regular rate and rhythm. No murmurs, gallops, or rubs. PMI is at fourth intercostal space at the midclavicular line. LUNGS: Clear to auscultation bilaterally. ABDOMEN: Soft, nontender, and nondistended. No hepatosplenomegaly. Positive bowel sounds. EXTREMITIES: No evidence of edema, clubbing, or cyanosis. There is a rash with vesicular lesions in the oral mucosa and also rash with exfoliation of the soles of the feet and hands and shoulders. LABORATORY FINDINGS: Sodium was 141, potassium was 3.9, chloride is 102, bicarbonate 24, BUN of 15, creatinine 0.7, glucose is 112, and calcium is 8.9. AST was 81 and ALT was 170. INR is 0.9. WBC was 1.4, hemoglobin 9.2, hematocrit 26.1, and platelet count is 150,000. There is 15% neutrophil and 74% lymphocyte. Stool occult blood was negative. A 12-lead electrocardiogram done on 01/20/2017 of sinus rhythm with no acute ST and T-wave abnormalities. ASSESSMENT AND PLAN: The patient is a very unfortunate 61-year-old female, seen in Cardiology consultation at request of Dr. Oliveros: 1. Most likely noncardiac chest pain. The patient's 12-lead electrocardiogram does not show any evidence of ischemia. A 2D echocardiography on 01/16/2017 at time of arrival of this patient to the hospital showed a normal left ventricular systolic function with LVEF of 55% to 60%. No wall motion abnormalities and no valvar physiology. Left ventricular diastolic function was within normal limits. Troponin I x2 is negative. Therefore acute myocardial infarction is ruled out. The patient is currently chest pain free. We will continue with recommendation from Infectious Disease and Hematology regarding her breast cancer treatment. 2. Rash, I believe to be allergic in origin. 3. Neutropenic fever, currently Infectious Disease is following the patient in this regard. I would like to thank, Dr. Oliveros, for courtesy of this consultation. Neeraj Cheng M.D. DR: MERLYN JOB#: [id number] CC:
[2017-01-23] MEDS ORDERED: Hydrocortisone 2.5% Oint 30gm TOPIC PRN (03:30)
[2017-01-23 04:00] VITALS: BP 104/60
[2017-01-23 08:00] VITALS: BP 90/52
[2017-01-23] MEDS ORDERED: Lidocaine 2% Visc 15ml soln ORAL SCH (09:00)
[2017-01-23] MEDS ORDERED: Dyna-Hex 2% Top Sol 8oz TOPIC SCH (09:00)
[2017-01-23] MEDS ORDERED: Vitamin A&D Oint 2oz Tube TOPIC SCH (09:00)
[2017-01-23] MEDS ORDERED: Heplock Flush 100 units/ml 3 ml syr INJ SCH (10:45)
[2017-01-23 11:41] VITALS: BP 111/74
[2017-01-23] MEDS ORDERED: Tubing IV Secondary IV ONE (11:49)
--- NOTE | 2017-01-23 14:06 | General Progress Note ---
Assessment/Plan Assessment/Plan # Acneiform rash of the hands and feet (please refer to pictures/images in the chart under "other reports" to see changes since her admission) ---> given hx of herceptin/perjecta--->continue topical steriods and doxycycline po, is slowly improving ---> ID service is on board # Stage II breast cancer (per patient) has been on perjeta and herceptin with Dr. Mendoza in his clinic and now p/w rash likely related to medication ---> currently has not received chemo since 01/11/17, off of it, monitor rash for improvement in next few days, then continue chemo as outpatient # Leukopenia likely related to chemotherapy that was in addition to herpectin and perjeta ---> Improved s/p neupogen # Anemia secondary to chronic disease ---> Anemia w/u has been reviewed, has anemia of chronic disease # Anemia rule out Gi bleed # Mucositis and rash related to perjeta very likely (commonly associated with this medication) # Dysphagia related to perjeta likely Subjective Constitutional: Reports: no symptoms HEENT: Reports: no symptoms Cardiovascular: Reports: no symptoms Respiratory: Reports: no symptoms Gastrointestinal/Abdominal: Reports: poor appetite Genitourinary: Reports: no symptoms Neurologic/Psychiatric: Reports: no symptoms Hematologic/Lymphatic: Reports: anemia Allergies: Coded Allergies: No Known Allergies (Unverified , 01/16/17) Subjective hands and feet rash today has improved, she will see oncologist in next week Objective Last 24 Hour Vital Signs Date Time Temp Pulse Resp B/P Pulse Ox O2 Delivery O2 Flow Rate FiO2 01/23/17 11:41 97.9 90 14 111/74 98 Room Air 01/23/17 08:00 97.5 95 18 90/52 96 Room Air 01/23/17 04:00 97.7 79 18 104/60 97 Room Air 01/23/17 00:00 98.8 80 18 100/55 95 Room Air 01/22/17 20:00 97.5 86 20 114/64 97 Room Air 01/22/17 16:14 97.7 84 18 107/62 97 Room Air 01/22/17 16:00 78 Intake and Output 01/22/17 01/23/17 19:00 07:00 Intake Total 480 ml 200 ml Balance 480 ml 200 ml Intake Oral 480 ml 200 ml # Voids 3 1 Height (Feet): 5 Height (Inches): 2.00 Weight (Pounds): 140 General Appearance: no apparent distress EENT: normal ENT inspection Neck: normal inspection Cardiovascular: regular rhythm Respiratory/Chest: lungs clear Abdomen: normal bowel sounds, no mass Extremities: non-tender Edema: mild edema Neurologic: alert Skin: warm/dry Lei Parisi Jan 23, 2017 14:06
--- NOTE | 2017-01-25 10:13 | Discharge Summary ---
Discharge Summary Hospital Course Date of Admission Jan 16, 2017 at 20:23 Date of Discharge Jan 23, 2017 at 11:50 Admitting Diagnosis drug reaction HPI Kaylee Guevara is a 61 year old female who was admitted on Jan 16, 2017 at 20:23 for Drug Reaction Hospital Course [id number] Discharge Discharge Disposition Patient was discharged to Home (01) Discharge Diagnoses: Anali Wolf NP Jan 25, 2017 10:13
--- NOTE | 2017-01-25 23:16 | Discharge Summary 2 SIG ---
DATE OF ADMISSION: 01/16/2017 DATE OF DISCHARGE: 01/23/2017 CONSULTANTS: 1. Lei Parisi M.D. 2. Neeraj Cheng M.D. 3. Payton Zaragoza M.D. BRIEF HOSPITAL COURSE: The patient is a 61-year-old female who presented to ED with progressive rash and blistering on the oral mucosa and vaginal mucosa that has been progressive over the past two days. She has a history of rash with chemotherapy, however, rash has been progressive and developed new blistering lesions on the mouth and genitalia. Initially, symptoms were mild and developed painful lesions. Rash improved minimally with IV hydration given from her last doctor's visit. She reported burning sensation in the throat with painful swallowing. Last chemotherapy was a week prior. On evaluation at ED, physical examination was consistent with allergic reaction involving the mucous membranes suspicious for Stefan Tato syndrome. She had a WBC count of 1.4 and pancytopenia noted. She was given a liter of NS and intravenous Benadryl and was admitted to medical floor for further evaluation and management. Dr. Parisi was consulted. The patient has a stage II breast cancer and has been on Perjeta and Herceptin with Dr. Mendoza. Rash most likely related to medication. Leukopenia was related to chemotherapy and the patient was given Neupogen subcutaneous injections. At ED, she had low-grade temperature, probably neutropenic fever. She was pancultured and was started on vancomycin and cefepime. Blood culture and urine culture were negative. Vancomycin and cefepime was discontinued. She was given topical steroids for the rash on the hands and feet and was eventually started on doxycycline po and was given Xylocaine viscous three times a day with chlorhexidine mouthwash. Viral serology was negative. The patient complained of chest pain described to be squeezing and nonradiating. A 12-lead echocardiogram done showed no evidence of ST to T-wave abnormalities. She was followed by Dr. Cheng. Troponins have been negative and did not show any evidence of ischemia. Echocardiogram done showed normal left ventricular systolic function with LVEF of 55% to 60%, no wall motion abnormalities, no valvular defects, left ventricular diastolic function was within normal limits. Acute myocardial infarction was ruled out and chest pain resolved. The rash she has on hands and feet improved. She was advised to follow up with her own oncologist post discharge. FINAL DIAGNOSES: 1. Acneiform rash on the hands and feet, possibly secondary to medication, mainly Perjeta. 2. Neutropenic fever. 3. Stage II breast cancer on chemotherapy medications. 4. Leukopenia, related to chemotherapy. 5. Anemia, secondary to chronic disease. 6. Mucositis and rash, related to medication. 7. Dysphagia, related to Perjeta likely. 8. Noncardiac chest pain. 9. Neutropenia/ pancytopenia. 10. Elevated liver transaminases. Shannan Oliveros M.D. I have been assigned to dictate discharge summary on this account and I was not involved in the patient's management. Anali Wolf N.P. DR: ALVARO JOB#: [id number] CC: WERNER
== END 2017-01-23 11:50 | disposition home or self-care (01) | DRG 660 ==
LOC: EMR 19:58 → 4E 20:23 → EDBEDREQ 20:35 → 3E 22:42 → 2E 01-20 17:40 → 4W 01-22 21:54 → 4E 01-23 08:37
DX: D70.1 Agranulocytosis secondary to cancer chemotherapy (principal); C50.919 Malignant neoplasm of unspecified site of unspecified female breast; R13.10 Dysphagia, unspecified; K12.31 Oral mucositis (ulcerative) due to antineoplastic therapy; N76.5 Ulceration of vagina; R50.81 Fever presenting with conditions classified elsewhere; T45.1X5A Adverse effect of antineoplastic and immunosuppressive drugs, initial encounter; L27.0 Generalized skin eruption due to drugs and medicaments taken internally; R07.89 Other chest pain; N76.81 Mucositis (ulcerative) of vagina and vulva; K21.9 Gastro-esophageal reflux disease without esophagitis
CPT/HCPCS: 36415; 80053; 80061; 80202; 81003; 82270; 82607; 82728; 83010; 83540; 83550; 84484; 84550; 85007; 85025; 85044; 85060; 85610; 85730; 86300; 86695; 86705; 86709; 86787; 86803; 87040; 87086; 87340; 93005; 93306

== ENCOUNTER 2017-02-15 11:15 | Emergency (ER) | payer MEDICAID ==
[~2017-02-15] VITALS: Ht 157.5 cm; Wt 65.8 kg
[2017-02-15 11:30] VITALS: BP 122/53
[2017-02-15 12:13] LABS: BASOPHILS % (AUTO) 1.8 % (0.0-2.0); LYMPHOCYTES % (AUTO) 33.4 % (20.0-45.0); MEAN CORPUSCULAR HEMOGLOBIN 33.2 PG (27.0-31.0); MEAN CORPUSCULAR HGB CONC 32.2 G/DL (32.0-36.0); MEAN CORPUSCULAR VOLUME 103 FL (80-99); MEAN PLATELET VOLUME 8.7 FL (6.5-10.1); MONOCYTES % (AUTO) 10.5 % (1.0-10.0); NEUTROPHILS % (AUTO) 49.4 % (45.0-75.0); PLATELET COUNT 192 K/UL (150-450); RED BLOOD COUNT 3.65 M/UL (4.20-5.40); RED CELL DISTRIBUTION WIDTH 14.2 % (11.6-14.8); WHITE BLOOD COUNT 4.2 K/UL (4.8-10.8)
[2017-02-15 12:24] LABS: INR 0.9 (0.9-1.1); PROTHROMBIN TIME 9.7 SEC (9.30-11.50)
[2017-02-15 12:29] LABS: ALANINE AMINOTRANSFERASE 23 U/L (3-33); ALBUMIN/GLOBULIN RATIO 1.4 (1.0-2.7); ANION GAP 7 (5-15); ASPARTATE AMINO TRANSFERASE 31 U/L (5-40); CALCIUM 9.5 mg/dL (8.6-10.2); CARBON DIOXIDE 26 mEQ/L (20-30); CHLORIDE 104 mEQ/L (98-107); CREATININE 0.7 mg/dL (0.5-0.9); GLOMERULAR FILTRATION RATE > 60 mL/min (>60); HEMOLYSIS 7; POTASSIUM 4.6 mEQ/L (3.4-4.9); SODIUM 137 mEQ/L (135-145); TOTAL PROTEIN 6.8 g/dL (6.6-8.7)
[2017-02-15] MEDS ORDERED: Meclizine 25mg tab ORAL ONE (13:15)
--- NOTE | 2017-02-15 13:23 | Diagnostic Imaging Report ---
Indication: Chest pain Technique: One view of the chest Comparison: none Findings: There is a left chest port catheter in good position. Lungs and pleural spaces are clear. Heart size is normal Impression: No acute process
--- NOTE | 2017-02-15 13:37 | Diagnostic Imaging Report ---
Indication: PAIN Technique: Continuous helical CT scanning of the head was performed without intravenous contrast material. Axial and coronal 5 mm sections were generated. Radiation dose was minimized using automated exposure control Dose: Total Dose Length Product - DLP [address] Dose Index - CTDIvol(s) 70.38 mGy. Comparison: None Findings: The ventricular system is normal in size and configuration. There is no shift of midline structures. No abnormal extra-axial fluid collections are noted. There is no evidence of intracerebral bleeding. No other abnormal high or low density areas are noted within the brain. Intact calvarium. Visualized orbits and sinuses are unremarkable. The mastoids are clear. The right mastoids are asymmetrically hypoplastic Impression: Normal CT scan of the head without contrast material. Negative for acute intracranial bleed or mass effect Mastoid asymmetry, with markedly reduced right mastoid aeration. Correlate with any history of possible prior right mastoid surgery. The CT scanner at [facility] is accredited by the [employer] and the scans are performed using protocols designed to limit radiation exposure to as low as reasonably achievable to attain images of sufficient resolution adequate for diagnostic evaluation.
[2017-02-15] MEDS ORDERED: MECLIZINE HCL25 MG ORAL (13:52)
[2017-02-15] MEDS ORDERED: AMOXICILLIN500 MG ORAL (13:52)
[2017-02-15 14:54] VITALS: BP 109/46
--- NOTE | 2017-02-17 04:29 | Emergency Room Report ---
History of Present Illness General Chief Complaint: Generalized Weakness Source: Patient, Family Member Present Illness HPI Patient is a 61-year-old female presented after increased generalized weakness. Patient gradual onset of symptoms. Patient prior history of breast cancer. Patient reported having increased difficulty with balance. She reported having increased spinning station. This was worse with head movements. Patient reports having previously had a right breast lesion. As she had previous he been on chemotherapy with the Herceptin Allergies: Coded Allergies: No Known Allergies (Unverified , 01/16/17) Patient History Past Medical History: see triage record Last Menstrual Period: na Reviewed Nursing Documentation: PMH: Agreed, PSxH: Agreed Nursing Documentation-PMH Past Medical History: No History, Except For Hx Cancer: Yes - breast cancer R Review of Systems All Other Systems: negative except mentioned in HPI Physical Exam Vital Signs Date Time Temp Pulse Resp B/P Pulse Ox O2 Delivery O2 Flow Rate FiO2 02/15/17 11:18 98.2 70 18 132/68 99 Room Air Sp02 EP Interpretation: reviewed, normal General Appearance: normal inspection, well appearing, no apparent distress, alert, GCS 15 Head: atraumatic ENT: normal ENT inspection, hearing grossly normal, normal voice Neck: normal inspection, full range of motion, supple, no bony tend Respiratory: normal inspection, lungs clear, normal breath sounds, no respiratory distress, no retraction, no wheezing Cardiovascular #1: regular rate, rhythm, no edema Gastrointestinal: normal inspection, normal bowel sounds, non tender, soft, no guarding, no hernia Genitourinary: no CVA tenderness Musculoskeletal: normal inspection, back normal, normal range of motion Neurologic: normal inspection, alert, oriented x3, responsive, machine setter III-XII nml as tested, speech normal Psychiatric: normal inspection, judgement/insight normal, mood/affect normal Skin: normal inspection, normal color, no rash Medical Decision Making Diagnostic Impression: Primary Impression: Episode of generalized weakness Additional Impressions: Mastoiditis Breast cancer ER Course Patient presented for generalized weakness and dizziness. Differential diagnoses included wasn't limited to CVA, mastoiditis, labyrinthitis, electrolyte abnormality, anemia among others. Because of complexity of patient' s case laboratory testing and imaging studies were ordered. CT the head read by radiologist showed atrophic changes without evident CVA or hemorrhage. There was noted to be some changes to the mastoid process consistent with possible mastoiditis.. Patient was given oral meclizine. The patient was noted to have some improvement. Patient was advised followup with her primary care physician for further evaluation and treatment. Last Vital Signs Date Time Temp Pulse Resp B/P Pulse Ox O2 Delivery O2 Flow Rate FiO2 02/15/17 14:54 72 16 109/46 100 Room Air 02/15/17 11:30 98.0 Status: improved Disposition: HOME, SELF-CARE Condition: Stable Scripts Meclizine Hcl* (MECLIZINE*) 25 Mg Tablet 25 MG ORAL THREE TIMES A DAY, #20 TAB Prov: Jerman Barillas 02/15/17 Amoxicillin* (AMOXIL*) 500 Mg Capsule 500 MG ORAL EVERY 8 HOURS, #30 CAP Prov: Jerman Barillas 02/15/17 Patient Instructions: Vertigo, Weakness Jerman Barillas Feb 17, 2017 04:29
== END 2017-02-15 14:56 | disposition home or self-care (01) ==
LOC: EMR 11:55
DX: R53.1 Weakness (principal); H70.91 Unspecified mastoiditis, right ear; Z85.3 Personal history of malignant neoplasm of breast; Z92.21 Personal history of antineoplastic chemotherapy
CPT/HCPCS: 36415; 70450; 71010; 80053; 85025; 85610; 85730; 99284